=== PATIENT | female | born 1935 | race Caucasian/White ===

== ENCOUNTER 2016-09-16 10:11 | Day surgery (SDC) | payer MEDICARE ==
[~2016-09-16] VITALS: Ht 162.6 cm; Wt 54.0 kg
[~2016-09-16 10:11] MED LIST: ANAS1 PO; ATEN-100 PO; CALC500T21 PO; CHOL4POW4 PO; CHOL50006 PO; DORZ2SOL3 EACH EYE; DYAZ37.52 PO; LATA.005%O EACH EYE; LOPE2 PO; LOSA25TA31 PO; METH750T2 PO; PROBCAP4 PO; TYLE3 PO
[2016-09-16] MEDS ORDERED: NS 1000P @30 MLS/HR (KVO) IV SCH (11:00)
[2016-09-16 11:07] VITALS: PULSE 76; RESP 18; TEMP 98.2; O2SAT 98
[2016-09-16] MEDS ORDERED: CALC1TAB12 PO (11:27)
[2016-09-16] MEDS ORDERED: LATA0.002 EACH EYE (11:27)
[2016-09-16] MEDS ORDERED: CHOL4POW3 PO (11:27)
[2016-09-16] MEDS ORDERED: LACTCAP8 PO (11:27)
[2016-09-16] MEDS ORDERED: DORZ2SOL15 EACH EYE (11:27)
[2016-09-16] MEDS ORDERED: PONASOL NASAL (11:27)
[2016-09-16] MEDS ORDERED: NITR0.4S SL (11:27)
[2016-09-16] MEDS ORDERED: DEEP0.65 (11:27)
[2016-09-16] MEDS ORDERED: HYOMAX-SL SL (11:27)
[2016-09-16] MEDS ORDERED: ATEN25TA PO (11:27)
[2016-09-16] MEDS ORDERED: FLUO0.0124 EACH EAR (11:27)
[2016-09-16] MEDS ORDERED: ASPI81CH37 CHEW (11:27)
[2016-09-16] MEDS ORDERED: VITA2000 PO (11:27)
[2016-09-16] MEDS ORDERED: FLAXPOW PO (11:27)
[2016-09-16] MEDS ORDERED: ANAS1 PO (11:27)
[2016-09-16] MEDS ORDERED: ACET-822 PO (11:27)
[2016-09-16] MEDS ORDERED: LOSA25TA PO (11:27)
[2016-09-16] MEDS ORDERED: TRIA37.5 PO (11:27)
[2016-09-16] MEDS ORDERED: PRED20 PO (11:27)
[2016-09-16] MEDS ORDERED: RANI150T PO (11:27)
[2016-09-16] MEDS ORDERED: HEPARIN-NS/PF INJ 500 ML ONE (12:24)
[2016-09-16] MEDS ORDERED: MIDAZOLAM HCL 2 MG/2 ML VIAL ONE (12:25)
[2016-09-16] MEDS ORDERED: diphenhydrAMINE HCL 50 MG/ML VIAL ONE (12:33)
[2016-09-16] MEDS ORDERED: MISC INFORMATION XX ONE (13:00)
[2016-09-16] MEDS ORDERED: LIDOCAINE HCL 1% 50 ML VIAL INFIL PRN (13:00)
[2016-09-16] MEDS ORDERED: BACITRACIN OINT 0.9 GM PKT TOP ONE (13:00)
[2016-09-16] MEDS ORDERED: SODIUM CHLOR 0.9% 250 ML INJ 250 ML IV PRN (13:00)
[2016-09-16] MEDS ORDERED: ATROPINE SULFATE 1 MG/ML VIAL IV PRN (13:00)
[2016-09-16] MEDS ORDERED: ONDANSETRON HCL 4 MG/2 ML VIAL IV PRN (13:00)
[2016-09-16] MEDS ORDERED: LORazepam 2 MG/ML VIAL IV PRN (13:00)
--- NOTE | 2016-09-16 13:24 | CATHPROC ---
[email or web address] HIS Report Study Information Study Number Admission Scheduled Start Study Start [id number] Sep 16 2016 10:11AM 09/16/2016 Sep 16 2016 12:13PM Study Type Rosalia Service Left/Possible PCI Cardiac Catheterization Admit Source Facility Department Other [facility] - Personal Computer Network Analyst Physician and Clinical Staff Initial MD Wren, Karl Shoe Repair Supervisorcarlos Martin RN, Josie Orozco RN Recorder Sabino Castaneda RCIS(BS) Scrub Gerri Chanel RT(R) Procedures Performed Procedure Location (Site) Vessel Name Angiogram LV LV Ventricle Coronary Angiograms LCA Left Coronary Coronary Angiograms RCA Right Coronary L Heart Cath Equipment Time Youth Liaison Officer Description Size Mfg Part Number Used/Scraped TRANSDUCER, TRUWAVE [id number] 12:14 AHUMADA CISSE * Used W/STOCKCOCK *[id number] TRANSDUCER, TRUWAVE [id number] 12:39 AHUMADA CISSE * Used W/STOCKCOCK *[id number] *[id number] [id number] *[id number] [id number] *[id number] 12:14 InboundWriter INDUSTRIES PACK, CCL CUSTOM * Used *[id number] 12:39 InboundWriter PACER PEN, SKIN DUAL W/ RULER * Used *[id number] 12:14 Vingle MEDICAL SHEATH, FR6.5 PRELUDE 11CM FR 6.5 038ACT Used *[id number] 12:39 Cogo WIRE, 3MMJ .035 180CM 180CM Used *[id number] 12:14 NAMIC MANIFOLD, 4 PORT * Used *[id number] 12:41 NYCOMED OMNIPAQUE, 350 MG, 150ML 150ML [id number] Used [id number] 12:39 ModuleQ BLANKET,WARM AIR CCL * Used *[id number] History: Allergies Allergy Reaction Cipro DIARRHEA Demerol NAUSEA Iohexol (OMNIPAQUE) Meds Given - Hives/Rash Lactose GI SXS Nonsteroidal Anti-Inflammatory DYSPEPSIA Agts Brimonidine Mobic Reclast History: Risk Factors Family History of Hypertension Dyslipidemia Previous SC Previous Heart Failure Premature CAD Yes No No No No Prior Valve Prior PCI Prior CABG Surgery No No No Cerebrovascular Peripheral Artery Chronic Lung On Dialysis Diabetes Disease Disease Disease No No Yes No No History: Stress Tests Stress or Imaging Studies Performed Yes Standard Exercise Stress Test No Stress Echo No Stress Test SPECT Stress Test SPECT Result Stress Test SPECT Ischemia Risk/Extent Yes Positive High Stress Test CMR No Cardiac CTA Coronary Calcium Score No No History: Other Current Smoker No Labs Hgb (g/dl) Hct (%) WBC (l/cumm) Platelets (thousands) 11.60-17.00 35.00-51.00 4.00-11.00 150.00-450.00 13.0 37.8 8.6 241 Glucose (mg/dl) BUN (mg/dl) Creatinine (mg/dl) BUN:Creatinine (1:x) 74.00-106.00 7.00-18.00 0.50-1.30 10.00-20.00 139 8 0.6 13.3 Na (meq/l) K (meq/l) 136.00-145.00 3.50-5.10 137 3.6 INR (PTT:PT) 0.90-1.10 1.1 CPK-MB (ng/ML) 0.50-3.60 Not Drawn Medication Medication Total Dose (Bolus/Oral) Medication Total Dosage/Unit 1% XYLOCAINE 20 mL BENADRYL 25 mg VERSED 1 mg Medications (Bolus/Oral) Medication Time Given Dosage/Unit Administered By Reason BENADRYL 09/16/2016 12:33:00 PM 25 mg Joaquín Martin RN 25 mg BENADRYL given in lab by Joaquín Martin RN in Right Forearm via Peripheral IV. Ordered by Karl Dunn. VERSED 09/16/2016 12:35:00 PM 1 mg Joaquín Martin RN 1 mg VERSED given in lab by Joaquín Martin RN in Right Forearm via Peripheral IV. Ordered by Karl Wren. 1% XYLOCAINE 09/16/2016 12:35:04 PM 20 mL Karl Wren 20 mL 1% XYLOCAINE given in lab by Karl Wren in Right Groin via Subcutaneous. Ordered by Karl Mancera ms. Medication (Drip) Medication Time Given Dosage/Unit Concentration/Unit Diluent (ml) Solution IV Solutions 09/16/2016 12:24:53 PM 0 mL (IV) 500 NaCl .9 Patient arrived on IV Solutions in Right Forearm via Peripheral IV. Pump/Drip Flow = 20 ml/hr using N aCl .9. Ordered by Karl Wren. Initial Case Assessment Cardiovascular HR Rhythm NIBP Chest Pain 80 SR 137/69 0 Edema Present Skin color Skin None Normal Warm Dry Circulatory - Right Pulses Dorsalis Pedis Femoral 2 2 Scale (0,1,2,3,4,d) Circulatory - Left Pulses Dorsalis Pedis Femoral 2 2 Scale (0,1,2,3,4,d) Circulatory - Lower Extremities Color Lower Right Color Lower Left Normal Normal Neurological State Oriented to time-place- Alert Moves all extremities person Respiration - General Respiration Rate SpO2 (%) (B/min) 12 95 Chronological Log Time Study Chronological Log 12:20:35 Patient arrived via Bed. 12:20:42 Patient Name, D.O.B, / Armband Verified By R.N. 12:20:42 Consent signed by the physician and the patient and verified by the Personal Computer Network Analyst staff. 12:20:43 Pre-op and post- op instructions given; patient acknowledges understanding of instructions. Vitals capture started with the following parameters, Patient=Adult, Interval=5 min, Initial Pr nhuoft=066 mmHg, 12:22:35 Deflation Rate=5 mmHg 12:23:48 HR=78 bpm, DLVM=039/68 mmhg, MeV2=893.0 %, Resp=9 B/min, Pain=0, Joanna=10, Spann=2 12:24:16 Reference ECG taken 12:24:48 Patient has been NPO for Less than 6Hrs. 12:24:49 Skin Breakdown- 12:24:50 Patient Warmer Placed on the Table. 12:24:52 A # 20 IV was noted in the Forearm (right). Grade = 0 Patient arrived on IV Solutions in Right Forearm via Peripheral IV. Pump/Drip Flow = 20 ml/hr u sing NaCl .9. Ordered 12:24:53 by Karl Wren. 12:24:54 History and physical on the chart or being dictated. Assessment: Initial Case, HR=80 BPM, Rhythm=SR, NUZG=279/69 mmhg, Chest Pain=0, Edema=None, Col or=Normal, Skin = Warm, Dry Right Pulses: Som Ped=2, Femoral=2 Left Pulses: Som Ped=2, Femoral=2 12:24:55 Lower Right Extremities: Color=Normal Lower Left Extremities: Color=Normal Neurological: State=Alert, Ox3, JAMIL Respiration: Resp=12 B/min, SpO2=95 % 12:25:00 MD arrived. 12:28:08 HR=82 bpm, XIBE=414/69 mmhg, GhZ1=645.0 %, Resp=15 B/min, Pain=0, Joanna=10, Spann=2 Time Out. Correct patient, correct procedure,correct physician, ,power injector loaded or not l oaded with contrast with 12:32:53 surgical team present. Time Out Concurred by MD, individual staff and DUPLICATE MAKER in procedure 12:32:54 Case Start 12:33:00 25 mg BENADRYL given in lab by Joaquín Martin RN in Right Forearm via Peripheral IV. Ordered by Karl Wren. 12:33:10 HR=80 bpm, GJYW=189/73 mmhg, DiR9=849.0 %, Resp=15 B/min, Pain=0, Joanna=10, Spann=2 12:35:00 1 mg VERSED given in lab by Joaquín Martin RN in Right Forearm via Peripheral IV. Ordered by Karl Wren. 12:35:04 20 mL 1% XYLOCAINE given in lab by Karl Wren in Right Groin via Subcutaneous. Ordered by Karl Wren. 12:35:14 Access site was Right Femoral Artery. 12:36:18 Pressure channel 1 zeroed. 12:38:09 HR=84 bpm, KBTF=720/72 mmhg, SpO2=99.0 %, Resp=11 B/min, Pain=0, Joanna=10, Spann=2 12:39:05 A SHEATH, FR6.5 PRELUDE 11CM FR 6.5 was advanced into the Fem Art (right) using the Percuta neous technique. Recorded Pressure: Ao, HR=78, Condition=Condition 1 12:40:42 (Aorta) Ao 149/71/106 A JL 4.0 INFINITI CATHETER FR 6 was advanced over a wire. OMNIPAQUE, 350 MG, 150ML 150ML was us ed for 12:41:06 injections. 12:41:13 The LCA was injected and visualized at various angles. OMNIPAQUE, 350 MG, 150ML 150ML used . 12:43:14 HR=83 bpm, ELNS=582/58 mmhg, SpO2=97.0 %, Resp=9 B/min, Pain=0, Joanna=10, Spann=2 12:43:59 Catheter was removed A JR 4.0 INFINITI CATHETER FR 6 was advanced over a wire. OMNIPAQUE, 350 MG, 150ML 150ML was us ed for 12:44:00 injections. 12:44:44 The RCA was injected and visualized at various angles. OMNIPAQUE, 350 MG, 150ML 150ML used . 12:45:08 Catheter was removed A PIGTAIL STR INFINITI CATHETER FR 6 was advanced over a wire. OMNIPAQUE, 350 MG, 150ML 150ML w as used for 12:45:10 injections. Recorded Pressure: LV, HR=84, Condition=Condition 1 12:46:09 (Left Ventricle) LV 133/3/12 12:46:47 The LV was injected at 8 cc/sec for a total of 32. OMNIPAQUE, 350 MG, 150ML 150ML used. 12:48:09 HR=81 bpm, XVAP=106/64 mmhg, SpO2=96.0 %, Resp=13 B/min, Pain=0, Joanna=10, Spann=2 Recorded Pressure: LV, Ao, HR=85, Condition=Condition 1 12:48:22 (Left Ventricle) LV 139/4/44, (Aorta) Ao 138/54/94 12:49:05 Catheter was removed 12:50:00 Case End 12:53:10 HR=80 bpm, UTTI=798/57 mmhg, SpO2=99.0 %, Resp=10 B/min, Pain=0, Joanna=10, Spann=2 12:59:08 Sterile dressing applied to site 12:59:08 No case complications noted. 12:59:09 Cine recording checked. 12:59:12 Bedside Report will be given. 12:59:14 Contrast Scanned 12:59:17 A Left Heart Cath was performed. 12:59:[address] [facility] End Study - Contrast Media Used In Study Contrast Total Opened (mL) Total Used (mL) Total Wasted (mL) Omnipaque 70 70 0 End Study - Maximum Contrast Load Max Contrast Load (mL) 450.0 End Study - Radiation Exposure Fluoro Time (minutes) 1.3 End Study - Patient Disposition Complications Transferred To Telemetry Bed
--- NOTE | 2016-09-16 13:25 | MA ---
cc: CHUCHO DOYLE MD DATE 09/16/2016 PROCEDURE PERFORMED Cardiac catheterization PROCEDURAL STATEMENT The patient was prepped and draped in the usual fashion. She was premedicated with prednisone and Benadryl. A 6 sheath was inserted percutaneously in the right femoral artery. Coronary angiography was done with Brian preformed catheters. Left ventriculography was done with a pigtail catheter. RESULTS Aortic pressure of 140/54. Left ventricular end-diastolic pressure was 4. There was no gradient across the aortic valve. CORONARY ANGIOGRAPHY Left main coronary was normal. The left anterior descending artery was essentially normal throughout its course. At the origin of the first diagonal branch, a 20% stenosis was present. No other significant stenoses were seen. The left circumflex artery was essentially normal throughout its course. The right coronary artery was a large dominant artery. No significant stenoses were noted. The left ventricle was normal in size. Overall left ventricular ejection fraction was estimated at 60-65%. No mitral regurgitation was present. The aortic outflow tract appeared normal. CONCLUSIONS Essentially normal coronary arteries with normal left ventricular function and normal hemodynamics. MD MARIA C Gao/RA /1:05 PM /1:10 PM
[2016-09-16] MEDS ORDERED: IOHEXOL 350 MG/ML 100 ML BTL (for Cath Lab) OTHER ONE (15:22)
== END 2016-09-16 18:02 | disposition home or self-care (01) ==
LOC: HCAT 10:11 → HDIC 10:12 → HCAT 18:02
PROVIDERS: ATTEND Internal Medicine Cardiovascular Disease
DX: R07.89 Other chest pain (principal); I10 Essential (primary) hypertension; Z87.891 Personal history of nicotine dependence; I73.9 Peripheral vascular disease, unspecified; K21.9 Gastro-esophageal reflux disease without esophagitis; M50.30 Other cervical disc degeneration, unspecified cervical region; M41.9 Scoliosis, unspecified; Z85.3 Personal history of malignant neoplasm of breast
CPT/HCPCS: 93458; C1769; C1893; J1200; J1644; J2250; Q9967

== ENCOUNTER 2017-06-03 03:44 | Inpatient (IN) | payer MEDICARE ==
[2017-06-03] VITALS (7 sets, daily range): BP systolic 115–193; BP diastolic 58–78; PULSE 78–94; RESP 16–18; TEMP 97.5–98.5; O2SAT 95–100
[~2017-06-03] VITALS: Ht 162.6 cm; Wt 55.3 kg
[~2017-06-03 03:44] MED LIST changes: +ACET-822 PO; +ASPI81CH6 CHEW; -ATEN-100 PO; +ATEN25TA PO; +CALC1TAB12 PO; -CALC500T21 PO; +CHOL4POW3 PO; -CHOL4POW4 PO; -CHOL50006 PO; +DEEP0.65; +DORZ2SOL15 EACH EYE; -DORZ2SOL3 EACH EYE; -DYAZ37.52 PO; +FLAXPOW PO; +FLUO0.0124 EACH EAR; +HYOMAX-SL SL; +LACTCAP8 PO; -LATA.005%O EACH EYE; +LATA0.002 EACH EYE; -LOPE2 PO; +LOSA25TA PO; -LOSA25TA31 PO; -METH750T2 PO; +NITR0.4S SL; +PONASOL NASAL; +PRED20 PO; -PROBCAP4 PO; +RANI150T PO; +TRIA37.5 PO; -TYLE3 PO; +VITA2000 PO
--- NOTE | 2017-06-03 04:16 | PD ---
HPI Chief Complaint: Abdominal Pain Time Seen by Provider: 03:57 Travel History International Travel<30 days: No Contact w/Intl Traveler<30days: No Traveled to known affect area: No History of Present Illness HPI Pt is 81 yr old female with PMH of breast cancer followed by Dr burns coming in with severe abdo pain after eating peanuts tonight, she has history of gastritis and thinks peanuts often set off pain On arrival to ER pt was doubling over holding abdo, then when to bathroom and had somereliefr of her pain, Pt has had diverticulitis surgeries and and also jejunum resection 2005 \ PT MED HISTORY INCLUDES GERD (gastroesophageal reflux disease) Glaucoma Hypertension Inflammatory bowel disease (h/o diverticulitis and colitis) with [id number] 2005 Migraine headaches (Hx of migraines.) No Previous Radiation Therapy Pneumonia (Hx as a child.) Preferred Language for Healthcare Information (telugu) Recurrent UTI (Methanamine Hippurate) Uterine fibroids L breast cancer (Mammo for palp abn 12/19/12- L UOQ 1.8cm mass, 1.1cm by US hypoechoic mass. On Chemo PO now L breast Bx 12/27/12- poorly diff IDC, SBR 8/9, ER97%, ME 98%, Her2 3+.positive. MRI 01/09/13. T=2.2cm LUOQmass, 6mm mass 6:00. MRI bx 01/19/13. Mod ductal hyperplasia, cyst, benign lobules. L mastectomy 03/14/13. T=3.5x2.5x2.0cm, SBR 8/9, poorly diff IDC, PFSH Past Medical History Cancer: Yes (LEFT BREAST) Cardiovascular Problems: Yes (HTN) Chest Pain: No Diabetes: No (BOARDERLINE) Diminished Hearing: No Endocrine: No Gastrointestinal Disorders: Yes (REFLUX, DIVERTICULITIS HX, GERD) GERD: Yes Glaucoma: Yes (BILATERAL ) Genitourinary: No Hepatitis: No Hiatal Hernia: Yes Hypertension: Yes Immune Disorder: No Medical other: Yes (LYMPHEDEMA LEFT ARM) Musculoskeletal: Yes (ARTHRITIS) Neurologic: No Psychiatric: No Reproductive: No Respiratory: No Integumentary: No Immunizations Current: Yes Thyroid Disease: No Tetanus Vaccination: Unknown Influenza Vaccination: Yes ?: Not Past Surgical History Abdominal Surgery: Yes (COLON RESECTION X 2, LAP. NO, APPY, LYSIS ADHESIONS) AICD: No Appendectomy: Yes Cardiac Surgery: No Section: Yes (X 3) Cholecystectomy: Yes Ear Surgery: No Endocrine Surgery: No Eye Surgery: Yes (LEFT CATARACT) Genitourinary Surgery: No Gynecologic Surgery: Yes (C SECTION X 3, HYSTERECTOMY, OPHOORECTOMY) Hysterectomy: Yes Joint Replacement: No Oral Surgery: Yes (TONSILLECTOMY) Pacemaker: No Thoracic Surgery: No Tonsillectomy: Yes Other Surgery: Yes (2 COLON SURGERIES PORT REMOVAL) Social History Alcohol Use: No Tobacco Use: No Substance Use: No Allergies-Medications (Allergen,Severity, Reaction): Coded Allergies: brimonidine (Unverified Allergy, Severe, 10/19/16) lactose (Unverified Allergy, Severe, GI SXS, 10/19/16) meloxicam (Unverified Allergy, Severe, 10/19/16) zoledronic acid (Unverified Allergy, Severe, 10/19/16) iohexol (Unverified Allergy, Unknown, Meds Given - Hives/Rash, 10/19/16) ciprofloxacin (Unverified Adverse Reaction, Severe, DIARRHEA, 10/19/16) meperidine (Unverified Adverse Reaction, Severe, NAUSEA, 10/19/16) diclofenac (Unverified Adverse Reaction, Mild, DYSPEPSIA, 10/19/16) etodolac (Unverified Adverse Reaction, Mild, DYSPEPSIA, 10/19/16) flurbiprofen (Unverified Adverse Reaction, Mild, DYSPEPSIA, 10/19/16) ibuprofen (Unverified Adverse Reaction, Mild, DYSPEPSIA, 10/19/16) indomethacin (Unverified Adverse Reaction, Mild, DYSPEPSIA, 10/19/16) ketoprofen (Unverified Adverse Reaction, Mild, DYSPEPSIA, 10/19/16) ketorolac (Unverified Adverse Reaction, Mild, DYSPEPSIA, 10/19/16) naproxen (Unverified Adverse Reaction, Mild, DYSPEPSIA, 10/19/16) oxaprozin (Unverified Adverse Reaction, Mild, DYSPEPSIA, 10/19/16) Reported Meds & Prescriptions Reported Meds & Active Scripts Active Reported Methenamine Hippurate 1 Gram Tab 1 Gm PO BID Cranberry Urinary Comfort (Vitamins C & E) 1 Cap 1 Cap PO DAILY Latanoprost Opth Drops (Latanoprost) 0.005% Drops 1 Drop EACH EYE HS Refrigerate until opened. Dorzolamide-Timolol Opth Drops 22.3-6.8 Mg/Ml Soln 1 Drop EACH EYE BID Triamterene-Hydrochlorothiazide 37.5-25 Mg Tab 1 Tab PO DAILY Losartan (Losartan Potassium) 25 Mg Tab 25 Mg PO DAILY Atenolol 25 Mg Tab 25 Mg PO DAILY Flax Seeds (Flaxseed (Linseed)) 1 Pow Pow 1 Mg PO DIRECTED Cholestyramine 4 Gm/Dose Powd 4 Gm PO HS 1 level scoopful of powder contains 4 grams of cholestyramine. Nitrostat SL (Nitroglycerin) 0.4 Mg Subl 0.4 Mg SL DIRECTED PRN 1 tablet under the tongue as needed for chest pain. Repeat every 5 minutes for a total of 3 DOSES or call 911 if NO relief. Dermotic Otic Drops (Fluocinolone Otic Drops) 0.01% Drops 1 Drop EACH EAR DAILY Ranitidine (Ranitidine HCl) 150 Mg Tab 150 Mg PO DAILY Probiotic (Lactobacillus Acidophilus) 1 Cap Cap 1 Cap PO TIDAC Vitamin D3 (Cholecalciferol) 2,000 Unit Cap 2,000 Units PO DAILY Tylenol Extra Strength (Acetaminophen) 500 Mg Tablet 500 Mg PO Q6HR Calcium 500 +D (Calcium Carbonate-Cholecalciferol) 500-400 Mg-Unit Tab 1 Tab PO BID Arimidex (Anastrozole) 1 Mg Tab 1 Mg PO DAILY Review of Systems Except as stated in HPI: all other systems reviewed are Neg Gastrointestinal: Positive: Abdominal Pain Physical Exam Narrative GENERAL: non toxic appearance in mild distress SKIN: Warm and dry. HEAD: Atraumatic. Normocephalic. EYES: Pupils equal and round. No scleral icterus. No injection or drainage. ENT: No nasal bleeding or discharge. Mucous membranes pink and moist. NECK: Trachea midline. No JVD. CARDIOVASCULAR: Regular rate and rhythm. RESPIRATORY: No accessory muscle use. Clear to auscultation. Breath sounds equal bilaterally. GASTROINTESTINAL: Abdomen deanna-mbilical tenderness with out obvious protrusion or mass felt +tender, nondistended. Hepatic and splenic margins not palpable. MUSCULOSKELETAL: Extremities without clubbing, cyanosis, or edema. No obvious deformities. NEUROLOGICAL: Awake and alert. No obvious cranial nerve deficits. Motor grossly within normal limits. Five out of 5 muscle strength in the arms and legs. Normal speech. PSYCHIATRIC: Appropriate mood and affect; insight and judgment normal. Data Data Last Documented VS Orders Orders Complete Blood Count With Diff (06/03/17 04:02) Comprehensive Metabolic Panel (06/03/17 04:02) Ckmb (Isoenzyme) Profile (06/03/17 04:02) Troponin I (06/03/17 04:02) Ua Includes Microscopic (06/03/17 04:02) Chest, Pa & Lat (06/03/17 04:02) Abdomen, Flat & Upright (06/03/17 04:02) Type And Screen (06/03/17 04:02) Lipase (06/03/17 04:02) Pantoprazole Inj (Protonix Inj) (06/03/17 04:30) Famotidine Inj (Pepcid Inj) (06/03/17 04:17) Morphine Inj (Morphine Inj) (06/03/17 05:15) Ct Abd/Pel W/O Iv Contrast (06/03/17 ) Ondansetron Inj (Zofran Inj) (06/03/17 05:15) Consult General Surgery (06/03/17 ) NPO (06/03/17 06:06) Dext 5%-Nacl 0.9% 1000 Ml Inj (D5w-Ns 10 (06/03/17 06:15) Activity Oob Ad Amvis (06/03/17 06:09) Morphine Inj (Morphine Inj) (06/03/17 06:15) Admit Order (Ed Use Only) (06/03/17 06:11) Vital Signs (Adult) GURJIT.Q4H (06/03/17 06:11) Labs Laboratory Tests Test 06/03/17 04:05 White Blood Count 21.1 TH/MM3 Red Blood Count 4.68 MIL/MM3 Hemoglobin 13.9 GM/DL Hematocrit 40.7 % Mean Corpuscular Volume 86.9 FL Mean Corpuscular Hemoglobin 29.8 PG Mean Corpuscular Hemoglobin Concent 34.3 % Red Cell Distribution Width 13.4 % Platelet Count 260 TH/MM3 Mean Platelet Volume 7.7 FL Neutrophils (%) (Auto) 85.2 % Lymphocytes (%) (Auto) 6.8 % Monocytes (%) (Auto) 7.0 % Eosinophils (%) (Auto) 0.7 % Basophils (%) (Auto) 0.3 % Neutrophils # (Auto) 18.0 TH/MM3 Lymphocytes # (Auto) 1.4 TH/MM3 Monocytes # (Auto) 1.5 TH/MM3 Eosinophils # (Auto) 0.1 TH/MM3 Basophils # (Auto) 0.1 TH/MM3 CBC Comment DIFF FINAL Differential Comment Urine Color YELLOW Urine Turbidity CLEAR Urine pH 5.5 Urine Specific [place] 1.021 Urine Protein TRACE mg/dL Urine Glucose (UA) NEG mg/dL Urine Ketones NEG mg/dL Urine Occult Blood MOD Urine Nitrite NEG Urine Bilirubin NEG Urine Urobilinogen LESS THAN 2.0 MG/DL Urine Leukocyte Esterase NEG Urine RBC 6 /hpf Urine WBC LESS THAN 1 /hpf Urine Squamous Epithelial Cells <1 /hpf Urine Hyaline Casts 1 /lpf Urine Mucus FEW /lpf Blood Urea Nitrogen 20 MG/DL Creatinine 0.92 MG/DL Random Glucose 157 MG/DL Total Protein 7.9 GM/DL Albumin 4.0 GM/DL Calcium Level 9.5 MG/DL Alkaline Phosphatase 48 U/L Aspartate Amino Transf (AST/SGOT) 18 U/L Alanine Aminotransferase (ALT/SGPT) 22 U/L Total Bilirubin 0.6 MG/DL Sodium Level 138 MEQ/L Potassium Level 3.4 MEQ/L Chloride Level 100 MEQ/L Carbon Dioxide Level 29.1 MEQ/L Anion Gap 9 MEQ/L Estimat Glomerular Filtration Rate 59 ML/MIN Total Creatine Kinase 95 U/L Troponin I LESS THAN 0.02 NG/ML Lipase 113 U/L [facility] Medical Decision Making Medical Screen Exam Complete: Yes Emergency Medical Condition: Yes Differential Diagnosis DDx gastritis vs GB disease vs pancreatitis vs GERD vs ileus vs SBO other Narrative Course CT shows SBO with dilated loops of Small bowel and then decompressed Small bowel distal to assumed transition point although no obvious transition point identified. pt case discussed with general surgery Made NPO and IV fluids and admit to medicaine conservative treat initial with surgical consult as per surgery retinal surgeon Diagnosis Primary Impression: SBO (small bowel obstruction) Additional Impression: Hypokalemia Scripts Pantoprazole (Protonix) 40 Mg Tab 40 MG PO DAILY for Reflux, #30 TAB 0 Refills Prov: Jenae Hernandez 06/06/17 Herbie James MD Jun 03, 2017 04:16
[2017-06-03] MEDS ORDERED: FAMOTIDINE 20 MG/2 ML VIAL IV STA (04:17)
[2017-06-03] MEDS ORDERED: CRANCAP2 PO (04:18)
[2017-06-03] MEDS ORDERED: METH1TAB2 PO (04:18)
[2017-06-03 04:26] LABS: BASOPHIL # 0.1 TH/MM3 (0-0.2); BASOPHIL % 0.3 % (0.0-2.0); EOSINOPHIL # 0.1 TH/MM3 (0-0.4); EOSINOPHIL % 0.7 % (0.0-4.0); HEMATOCRIT 40.7 % (35.0-46.0); HEMOGLOBIN 13.9 GM/DL (11.6-15.3); LYMPH % 6.8 % (9.0-44.0); LYMPHOCYTE # 1.4 TH/MM3 (1.0-4.8); MEAN CELL VOLUME 86.9 FL (80.0-100.0); MEAN CORPUSCULAR HEMOGLOBIN 29.8 PG (27.0-34.0); MEAN CORPUSCULAR HGB CONC 34.3 % (32.0-36.0); MEAN PLATELET VOLUME 7.7 FL (7.0-11.0); MONOCYTE # 1.5 TH/MM3 (0-0.9); NEUT % 85.2 % (16.0-70.0); PLATELET COUNT 260 TH/MM3 (150-450); RED BLOOD COUNT 4.68 MIL/MM3 (4.00-5.30); RED CELL DISTRIBUTION WIDTH 13.4 % (11.6-17.2); WHITE BLOOD COUNT 21.1 TH/MM3 (4.0-11.0)
[2017-06-03 04:29] LABS: BILIRUBIN, URINE NEG (NEG); BLOOD, URINE MOD (NEG); GLUCOSE,URINE NEG (NEG); HYALINE CAST, URINE 1 /lpf (RARE); KETONE, URINE NEG (NEG); MUCUS URINE FEW /lpf (OCC); NITRITE,URINE NEG (NEG); PH, URINE 5.5 (5.0-8.5); SQUAMOUS EPITHELIAL CELL URINE <1 /hpf (0-5); URINE COLOR YELLOW (YELLW/STRAW); URINE LEUKOCYTE ESTERASE NEG (NEG)
[2017-06-03] MEDS ORDERED: PANTOPRAZOLE SODIUM 40 MG VIAL IV PUSH ONE (04:30)
[2017-06-03 04:38] LABS: ALT (GPT) 22 U/L (10-53); AST (GOT) 18 U/L (15-37); BICARBONATE 29.1 MEQ/L (21.0-32.0); BLOOD UREA NITROGEN 20 MG/DL (7-18); CALCIUM 9.5 MG/DL (8.5-10.1); CHLORIDE 100 MEQ/L (98-107); CREATININE 0.92 MG/DL (0.50-1.00); GLOMERULAR FILTRATION RATE 59 ML/MIN (>89); GLUCOSE,RANDOM 157 MG/DL (74-106); SODIUM (NA) 138 MEQ/L (136-145)
[2017-06-03 04:42] LABS: ALKALINE PHOSPHATASE 48 U/L (45-117); TOTAL BILIRUBIN ADULT 0.6 MG/DL (0.2-1.0); TOTAL PROTEIN 7.9 GM/DL (6.4-8.2); TROPONIN I LESS THAN 0.02 NG/ML (0.02-0.05)
--- NOTE | 2017-06-03 05:04 | RADRPT ---
EXAM DATE/TIME: 06/03/2017 04:22 [facility] COMPARISON: CHEST SINGLE AP, July 07, 2014, 17:31. INDICATIONS : Patient complains lower chest/upper abdomen pain and cramping. MEDICAL HISTORY : Carcinoma, breast. SURGICAL HISTORY : Mastectomy, left. ENCOUNTER: Initial ACUITY: 3 days PAIN SCORE: 4/10 LOCATION: chest FINDINGS: No infiltrate, effusion or pneumothorax demonstrated. Heart size stable, within normal limits. Mastec christophe changes on the left are again noted. CONCLUSION: No acute abnormality demonstrated. Joe Sanders MD on June 03, 2017 at 5:01 Board Certified Radiologist. This report was verified electronically.
--- NOTE | 2017-06-03 05:05 | RADRPT ---
EXAM DATE/TIME: 06/03/2017 04:24 [facility] COMPARISON: No previous studies available for comparison. INDICATIONS : Patient complains of abdominal pain and cramping. Nausea and vomiting as well. MEDICAL HISTORY : None. SURGICAL HISTORY : Appendectomy. Cholecystectomy. ENCOUNTER: Initial ACUITY: 3 days PAIN SCORE: 8/10 LOCATION: Left Lower Quadrant. FINDINGS: Supine and upright views of the abdomen were performed. The abdominal bowel gas pattern is normal. No air fluid levels are seen. No abnormal masses, calcifications, or organomegaly is seen. The visu alized lower lungs are clear. No evidence of free intraperitoneal gas. The osseous structures are u nremarkable. Right upper quadrant cholecystectomy clips and an anastomotic staple line in the pelvic cavity are no renetta. CONCLUSION: Benign-appearing abdomen. Previous cholecystectomy and bowel surgery. Joe Sanders MD on June 03, 2017 at 5:03 Board Certified Radiologist. This report was verified electronically.
[2017-06-03] MEDS ORDERED: ONDANSETRON HCL 4 MG/2 ML VIAL IV PUSH ONE (05:15)
[2017-06-03] MEDS ORDERED: MORPHINE SULFATE 4 MG/ML INJ IV PUSH ONE (05:15)
--- NOTE | 2017-06-03 05:54 | RADRPT ---
EXAM DATE/TIME: 06/03/2017 05:32 [facility] COMPARISON: No previous studies available for comparison. INDICATIONS : Diffuse abdominal pain. ORAL CONTRAST: No oral contrast ingested. RADIATION DOSE: 6.64 CTDIvol (mGy) MEDICAL HISTORY : Hypertension. Diverticulitis. Hernia, hiatal.Carcinoma, breast. Gastritis. GERD. SURGICAL HISTORY : Colon resection. Cholecystectomy.Appendectomy.Hysterectomy. Left mastectomy. ENCOUNTER: Initial ACUITY: 1 day PAIN SCALE: 9/10 LOCATION: Abdomen. TECHNIQUE: Volumetric scanning of the abdomen and pelvis was performed. Using automated exposure control and ad justment of the mA and/or kV according to patient size, radiation dose was kept as low as reasonably achievable to obtain optimal diagnostic quality images. DICOM format image data is available electro nically for review and comparison. FINDINGS: Small bowel is distended to the level of the mid ileum. Distal portions of the ileum are decompressed . I believe the transition is in the mid anterior pelvic cavity. Patient has had previous midline lap arotomy and surgery of the right side of the colon with an ileocolic anastomosis. The anastomosis ozzy ears patent. No mass demonstrated. Noncontrast appearance of the solid organs within normal limits. No free or loculated fluid. No lymph adenopathy. Visualized lung bases are clear. No acute bony abnormality demonstrated. CONCLUSION: 1. Small bowel obstruction that appears to be intermediate grade and occurring within the anterior as pect of the pelvic cavity at the level of the proximal ileum. No perceptible mass. Patient has had pr evious midline laparotomy and obstruction is presumably related to an adhesion. 2. Previous ileocolic surgery with anastomosis, not appearing to be acutely contributory. Joe Sanders MD on June 03, 2017 at 5:47 Board Certified Radiologist. This report was verified electronically.
[2017-06-03] MEDS ORDERED: MORPHINE SULFATE 4 MG/ML INJ IV PUSH PRN (06:15)
[2017-06-03] MEDS: DEXT 5%-NACL 0.9% 1000 ML INJ 1,000 ML IV SCH ×2 (06:20→14:27)
--- NOTE | 2017-06-03 08:53 | HHI.HP ---
HPI Service [facility] Hospitalists Primary Care Physician Mary Norris MD Admission Diagnosis SBO Chief Complaint: Abd pain Travel History International Travel<30 Days: No Contact w/Intl Traveler <30 Da: No Traveled to Known Affected Are: No History of Present Illness This is an 81-year-old female patient with past medical history which includes breast cancer followed by Dr. Wray, arthritis, GERD, glaucoma, hypertension, inflammatory bowel disease with history of diverticulitis and colitis, migraine headaches, recurrent UTIs. Patient has also had partial colectomy in the past and laparoscopic cholecystectomy as well as complete hysterectomy. Patient presented to the emergency department last night with severe abdominal pain after eating peanuts. Patient has history of gastritis and thinks peanuts often trigger her pain. Per ER notes, "On arrival to ER pt was doubling over holding abd, then when to bathroom and had some relief of her pain." Patient at this time patient reports abd pain a little better after having NGT placed. Patient denies flatus. Review of Systems Gastrointestinal: COMPLAINS OF: Abdominal pain, Constipation, Nausea, DENIES: Vomiting Past Family Social History Past Medical History Arthritis GERD Glaucoma Hypertension Inflammatory bowel disease diverticulitis and colitis Migraine headaches Recurrent UTI Uterine fibroids Breast cancer Past Surgical History Appendectomy C section Laparoscopic cholecystectomy Partial colectomy Breast biopsy Radical mastectomy left breast Cataracts Colon EGD - 11/12/2014 gastritis Hysterectomy Tonsillectomy Reported Medications Methenamine Hippurate 1 Gram Tab 1 Gm PO BID Cranberry Urinary Comfort (Vitamins C & E) 1 Cap 1 Cap PO DAILY Latanoprost Opth Drops (Latanoprost) 0.005% Drops 1 Drop EACH EYE HS Refrigerate until opened. Dorzolamide-Timolol Opth Drops 22.3-6.8 Mg/Ml Soln 1 Drop EACH EYE BID Triamterene-Hydrochlorothiazide 37.5-25 Mg Tab 1 Tab PO DAILY Losartan (Losartan Potassium) 25 Mg Tab 25 Mg PO DAILY Atenolol 25 Mg Tab 25 Mg PO DAILY Flax Seeds (Flaxseed (Linseed)) 1 Pow Pow 1 Mg PO DIRECTED Cholestyramine 4 Gm/Dose Powd 4 Gm PO HS 1 level scoopful of powder contains 4 grams of cholestyramine. Nitrostat SL (Nitroglycerin) 0.4 Mg Subl 0.4 Mg SL DIRECTED PRN 1 tablet under the tongue as needed for chest pain. Repeat every 5 minutes for a total of 3 DOSES or call 911 if NO relief. Dermotic Otic Drops (Fluocinolone Otic Drops) 0.01% Drops 1 Drop EACH EAR DAILY Ranitidine (Ranitidine HCl) 150 Mg Tab 150 Mg PO DAILY Probiotic (Lactobacillus Acidophilus) 1 Cap Cap 1 Cap PO TIDAC Vitamin D3 (Cholecalciferol) 2,000 Unit Cap 2,000 Units PO DAILY Tylenol Extra Strength (Acetaminophen) 500 Mg Tablet 500 Mg PO Q6HR Calcium 500 +D (Calcium Carbonate-Cholecalciferol) 500-400 Mg-Unit Tab 1 Tab PO BID Arimidex (Anastrozole) 1 Mg Tab 1 Mg PO DAILY Allergies: Coded Allergies: brimonidine (Unverified Allergy, Severe, 10/19/16) lactose (Unverified Allergy, Severe, GI SXS, 10/19/16) meloxicam (Unverified Allergy, Severe, 10/19/16) zoledronic acid (Unverified Allergy, Severe, 10/19/16) iohexol (Unverified Allergy, Unknown, Meds Given - Hives/Rash, 10/19/16) ciprofloxacin (Unverified Adverse Reaction, Severe, DIARRHEA, 10/19/16) meperidine (Unverified Adverse Reaction, Severe, NAUSEA, 10/19/16) diclofenac (Unverified Adverse Reaction, Mild, DYSPEPSIA, 10/19/16) etodolac (Unverified Adverse Reaction, Mild, DYSPEPSIA, 10/19/16) flurbiprofen (Unverified Adverse Reaction, Mild, DYSPEPSIA, 10/19/16) ibuprofen (Unverified Adverse Reaction, Mild, DYSPEPSIA, 10/19/16) indomethacin (Unverified Adverse Reaction, Mild, DYSPEPSIA, 10/19/16) ketoprofen (Unverified Adverse Reaction, Mild, DYSPEPSIA, 10/19/16) ketorolac (Unverified Adverse Reaction, Mild, DYSPEPSIA, 10/19/16) naproxen (Unverified Adverse Reaction, Mild, DYSPEPSIA, 10/19/16) oxaprozin (Unverified Adverse Reaction, Mild, DYSPEPSIA, 10/19/16) Family History Reviewed and noncontributory Social History Retired, Former smoker Denies illicit drug use Physical Exam Vital Signs Vital Signs Date Time Temp Pulse Resp B/P (MAP) Pulse Ox O2 Delivery O2 Flow Rate FiO2 06/03/17 07:34 85 17 122/59 (80) 100 Room Air 06/03/17 05:27 90 16 144/66 (92) 98 Room Air 06/03/17 04:32 84 18 183/74 (110) 98 Room Air 06/03/17 03:47 98.1 84 16 193/78 (116) 99 Physical Exam GENERAL: This is a well-nourished, well-developed patient, in no apparent distress. SKIN: Multiple healed scars through out abdomen HEAD: Atraumatic. Normocephalic. No temporal or scalp tenderness. EYES: Extraocular motions intact. No scleral icterus. No injection or drainage. CARDIOVASCULAR: Regular rate and rhythm RESPIRATORY: Clear to auscultation. Breath sounds equal bilaterally. GASTROINTESTINAL: Abdomen soft, diffusely tender, mild distention. hypoactive bowel sounds. NGT in place MUSCULOSKELETAL: Extremities without clubbing, cyanosis, or edema. No joint tenderness, effusion, or edema noted. No calf tenderness. Negative Homans sign bilaterally. NEUROLOGICAL: Awake and alert. No focal deficits noted. Motor and sensory grossly within normal limits. Five out of 5 muscle strength in all muscle groups. Normal speech. Laboratory Laboratory Tests Test 06/03/17 04:05 White Blood Count 21.1 Red Blood Count 4.68 Hemoglobin 13.9 Hematocrit 40.7 Mean Corpuscular Volume 86.9 Mean Corpuscular Hemoglobin 29.8 Mean Corpuscular Hemoglobin Concent 34.3 Red Cell Distribution Width 13.4 Platelet Count 260 Mean Platelet Volume 7.7 Neutrophils (%) (Auto) 85.2 Lymphocytes (%) (Auto) 6.8 Monocytes (%) (Auto) 7.0 Eosinophils (%) (Auto) 0.7 Basophils (%) (Auto) 0.3 Neutrophils # (Auto) 18.0 Lymphocytes # (Auto) 1.4 Monocytes # (Auto) 1.5 Eosinophils # (Auto) 0.1 Basophils # (Auto) 0.1 CBC Comment DIFF FINAL Differential Comment Urine Color YELLOW Urine Turbidity CLEAR Urine pH 5.5 Urine Specific [place] 1.021 Urine Protein TRACE Urine Glucose (UA) NEG Urine Ketones NEG Urine Occult Blood MOD Urine Nitrite NEG Urine Bilirubin NEG Urine Urobilinogen LESS THAN 2.0 Urine Leukocyte Esterase NEG Urine RBC 6 Urine WBC LESS THAN 1 Urine Squamous Epithelial Cells <1 Urine Hyaline Casts 1 Urine Mucus FEW Blood Urea Nitrogen 20 Creatinine 0.92 Random Glucose 157 Total Protein 7.9 Albumin 4.0 Calcium Level 9.5 Alkaline Phosphatase 48 Aspartate Amino Transf (AST/SGOT) 18 Alanine Aminotransferase (ALT/SGPT) 22 Total Bilirubin 0.6 Sodium Level 138 Potassium Level 3.4 Chloride Level 100 Carbon Dioxide Level 29.1 Anion Gap 9 Estimat Glomerular Filtration Rate 59 Total Creatine Kinase 95 Troponin I LESS THAN 0.02 Lipase 113 Result Diagram: 06/03/1740406/03/17404 Imaging Last Impressions Chest X-Ray 06/03/17401 Signed Impressions: Service Date/Time: Saturday, June 03, 2017 04:22 - CONCLUSION: No acute abnormality demonstrated. Joe Sanders MD Abdomen X-Ray 06/03/17401 Signed Impressions: Service Date/Time: Saturday, June 03, 2017 04:24 - CONCLUSION: Benign- appearing abdomen. Previous cholecystectomy and bowel surgery. Joe Sanders MD Abdomen/Pelvis CT 06/03/17 0000 Signed Impressions: Service Date/Time: Saturday, June 03, 2017 05:32 - CONCLUSION: 1. Small bowel obstruction that appears to be intermediate grade and occurring within the anterior aspect of the pelvic cavity at the level of the proximal ileum. No perceptible mass. Patient has had previous midline laparotomy and obstruction is presumably related to an adhesion. 2. Previous ileocolic surgery with anastomosis, not appearing to be acutely contributory. Joe Sanders MD Capopali VTE Risk Assessment Caprini VTE Risk Assessment: Mod/High Risk (score >= 2) Caprini Risk Assessment Model Point Value = 1 Point Value = 2 Point Value = 3 Point Value = 5 Age 41-60 Minor surgery BMI > 25 kg/m2 Swollen legs Varicose veins or History of unexplained or recurrent spontaneous Oral contraceptives or hormone replacement Sepsis (< 1 month) Serious lung disease, including pneumonia (< 1 month) Abnormal pulmonary function Acute myocardial infarction Congestive heart failure (< 1 month) History of inflammatory bowel disease Medical patient at bed rest Age 61-74 Arthroscopic surgery Major open surgery (> 45 min) Laparoscopic surgery (> 45 min) Malignancy Confined to bed (> 72 hours) Immobilizing plaster cast Central venous access Age >= 75 History of VTE Family history of VTE Factor V Leiden Prothrombin [id number] Lupus anticoagulant Anticardiolipin antibodies Elevated serum homocysteine Heparin-induced thrombocytopenia Other congenital or acquired thrombophilia Stroke (< 1 month) Elective arthroplasty Hip, pelvis, or leg fracture Acute spinal cord injury (< 1 month) Prophylaxis Regimen Total Risk Factor Score Risk Level Prophylaxis Regimen 0-1 Low Early ambulation 2 Moderate Order ONE of the following: *Sequential Compression Device (SCD) *Heparin 5000 units SQ BID 3-4 Higher Order ONE of the following medications: *Heparin 5000 units SQ TID *Enoxaparin/Lovenox 40 mg SQ daily (WT < 150 kg, CrCl > 30 mL/min) *Enoxaparin/Lovenox 30 mg SQ daily (WT < 150 kg, CrCl > 10-29 mL/min) *Enoxaparin/Lovenox 30 mg SQ BID (WT < 150 kg, CrCl > 30 mL/min) AND/OR *Sequential Compression Device (SCD) 5 or more Highest Order ONE of the following medications: *Heparin 5000 units SQ TID (Preferred with Epidurals) *Enoxaparin/Lovenox 40 mg SQ daily (WT < 150 kg, CrCl > 30 mL/min) *Enoxaparin/Lovenox 30 mg SQ daily (WT < 150 kg, CrCl > 10-29 mL/min) *Enoxaparin/Lovenox 30 mg SQ BID (WT < 150 kg, CrCl > 30 mL/min) AND *Sequential Compression Device (SCD) Assessment and Plan Problem List: (1) SBO (small bowel obstruction) ICD Codes: K56.609 - Unspecified intestinal obstruction, unspecified as to partial versus complete obstruction Plan: CT of the abdomen and pelvis reviewed and reveals small bowel obstruction that appears to be intermittent grade and occurring within the anterior aspect of the pelvic cavity at the level of the proximal ileum. No perceptible mass. Patient has had previous midline laparoscopic and short action is presumably related to an adhesion. Previous ileocecal surgery with anastomosis, not appearing to be acutely contributing - Patient nothing by mouth - NGT to LIWS - Consult general surgery - Repeat CT with contrast requested and pending - Lactic acid pending - IV fluid for hydration - Supportive care - patient may require surgical intervention with lysis of adhesions (2) Hypokalemia ICD Codes: E87.6 - Hypokalemia Plan: Replaced recheck in a.m. (3) Leukocytosis ICD Codes: D72.829 - Elevated white blood cell count, unspecified Status: Resolved Plan: White blood cell count 21.1 - patient with diffusely tender abd - consult general surgery, who are also following - Repeat CT with contrast requested and pending - Lactic acid pending Assessment and Plan Patient examined. Assessment and plan formulated with Jenae Hernandez PA-C. I agree with the above. Physician Certification 2 Midnight Certification Type: Admission for Inpatient Services Order for Inpatient Services The services are ordered in accordance with Medicare regulations or non- Medicare payer requirements, as applicable. In the case of services not specified as inpatient-only, they are appropriately provided as inpatient services in accordance with the 2-midnight benchmark. Estimated LOS (days): 3 days is the estimated time the patient will need to remain in the hospital, assuming treatment plan goals are met and no additional complications. Post-Hospital Plan: Not yet determined Jenae Hernandez Jun 03, 2017 08:53 Angel Kimball DO Jun 05, 2017 13:55
[2017-06-03] MEDS ORDERED: POTASSIUM CHLOR 20 MEQ PREMIX 100 ML IV ONE (09:00)
--- NOTE | 2017-06-03 10:37 | PD.CONS ---
HPI Service General surgery Consult Requested By Reason for Consult Small bowel obstruction Primary Care Physician Mary Norris MD History of Present Illness The patient is an 81-year-old female who presents with severe upper abdominal pain which began last night around dinnertime and worsened throughout the night. She relates that she had some peanuts at lunch to eat. In the middle of the night she developed nausea and vomiting. Denies flatus. The pain has been relieved somewhat with morphine. She was evaluated in the emergency department and noted to have leukocytosis of 21,[address] scan of the abdomen and pelvis without oral or IV contrast which showed a small bowel obstruction. She is allergic to IV contrast. The patient has multiple medical problems. She is undergone left mastectomy for breast cancer and is currently on Arimidex. Past surgical history is extensive including right colectomy for colon polyp, sigmoid colectomy for diverticulitis, laparoscopic cholecystectomy , 3, appendectomy, hysterectomy, some surgery for lysis of adhesions. By her report she had a recent cardiac catheterization without significant abnormality. Review of Systems Constitutional: DENIES: Fever, Chills Eyes: DENIES: Eye inflammation, Eye pain Ears, nose, mouth, throat: DENIES: Nasal discharge, Oral lesions Cardiovascular: DENIES: Chest pain, Lower Extremity Edema Gastrointestinal: COMPLAINS OF: Abdominal pain, Nausea, Vomiting Integumentary: DENIES: Pruritus, Rash Neurologic: DENIES: Paresthesias, Seizures Past Family Social History Past Medical History Arthritis GERD Glaucoma Hypertension Diverticulitis Right colon polyp Migraine headaches Recurrent UTI Left breast cancer Her 2+ Past Surgical History See HPI Reported Medications Reported Meds & Active Scripts Active Reported Methenamine Hippurate 1 Gram Tab 1 Gm PO BID Cranberry Urinary Comfort (Vitamins C & E) 1 Cap 1 Cap PO DAILY Latanoprost Opth Drops (Latanoprost) 0.005% Drops 1 Drop EACH EYE HS Refrigerate until opened. Dorzolamide-Timolol Opth Drops 22.3-6.8 Mg/Ml Soln 1 Drop EACH EYE BID Triamterene-Hydrochlorothiazide 37.5-25 Mg Tab 1 Tab PO DAILY Losartan (Losartan Potassium) 25 Mg Tab 25 Mg PO DAILY Atenolol 25 Mg Tab 25 Mg PO DAILY Flax Seeds (Flaxseed (Linseed)) 1 Pow Pow 1 Mg PO DIRECTED Cholestyramine 4 Gm/Dose Powd 4 Gm PO HS 1 level scoopful of powder contains 4 grams of cholestyramine. Nitrostat SL (Nitroglycerin) 0.4 Mg Subl 0.4 Mg SL DIRECTED PRN 1 tablet under the tongue as needed for chest pain. Repeat every 5 minutes for a total of 3 DOSES or call 911 if NO relief. Dermotic Otic Drops (Fluocinolone Otic Drops) 0.01% Drops 1 Drop EACH EAR DAILY Ranitidine (Ranitidine HCl) 150 Mg Tab 150 Mg PO DAILY Probiotic (Lactobacillus Acidophilus) 1 Cap Cap 1 Cap PO TIDAC Vitamin D3 (Cholecalciferol) 2,000 Unit Cap 2,000 Units PO DAILY Tylenol Extra Strength (Acetaminophen) 500 Mg Tablet 500 Mg PO Q6HR Calcium 500 +D (Calcium Carbonate-Cholecalciferol) 500-400 Mg-Unit Tab 1 Tab PO BID Arimidex (Anastrozole) 1 Mg Tab 1 Mg PO DAILY Allergies: Coded Allergies: brimonidine (Unverified Allergy, Severe, 10/19/16) lactose (Unverified Allergy, Severe, GI SXS, 10/19/16) meloxicam (Unverified Allergy, Severe, 10/19/16) zoledronic acid (Unverified Allergy, Severe, 10/19/16) iohexol (Unverified Allergy, Unknown, Meds Given - Hives/Rash, 10/19/16) ciprofloxacin (Unverified Adverse Reaction, Severe, DIARRHEA, 10/19/16) meperidine (Unverified Adverse Reaction, Severe, NAUSEA, 10/19/16) diclofenac (Unverified Adverse Reaction, Mild, DYSPEPSIA, 10/19/16) etodolac (Unverified Adverse Reaction, Mild, DYSPEPSIA, 10/19/16) flurbiprofen (Unverified Adverse Reaction, Mild, DYSPEPSIA, 10/19/16) ibuprofen (Unverified Adverse Reaction, Mild, DYSPEPSIA, 10/19/16) indomethacin (Unverified Adverse Reaction, Mild, DYSPEPSIA, 10/19/16) ketoprofen (Unverified Adverse Reaction, Mild, DYSPEPSIA, 10/19/16) ketorolac (Unverified Adverse Reaction, Mild, DYSPEPSIA, 10/19/16) naproxen (Unverified Adverse Reaction, Mild, DYSPEPSIA, 10/19/16) oxaprozin (Unverified Adverse Reaction, Mild, DYSPEPSIA, 10/19/16) Active Ordered Medications Current Medications Medications (Trade) Dose Ordered Sig/Jeri Route Start Time Stop Time Status Last Admin Dextrose/Sodium Chloride 1,000 ml @ 100 mls/hr Q10H IV 06/03/17 06:15 06/03/17 06:20 (Morphine Inj) 2 mg Q3H PRN IV PUSH 06/03/17 06:15 Potassium Chloride 100 ml @ 50 mls/hr ONCE ONCE IV 06/03/17 09:00 06/03/17 10:59 06/03/17 09:55 (Cosopt 2-0.5% Opth Soln) 1 drop BID EACH EYE 06/03/17 09:00 (Xalatan 0.005% Opth Soln) 1 drop HS EACH EYE 06/03/17 21:00 Family History Noncontributory Social History Her is here with her. No ETOH, tobacco or drug use. She is independent. Physical Exam Vital Signs Vital Signs Date Time Temp Pulse Resp B/P (MAP) Pulse Ox O2 Delivery O2 Flow Rate FiO2 06/03/17 09:51 91 17 115/58 (77) 100 Room Air 06/03/17 07:34 85 17 122/59 (80) 100 Room Air 06/03/17 05:27 90 16 144/66 (92) 98 Room Air 06/03/17 04:32 84 18 183/74 (110) 98 Room Air 06/03/17 03:47 98.1 84 16 193/78 (116) 99 Physical Exam GENERAL: Awake and alert. No acute distress. Cooperative. Elderly somewhat frail. HEAD: Normocephalic. Atraumatic. EYES: Pupils equal round and reactive to light bilaterally. No scleral icterus. ENT: Moist oral mucosa. NECK: Trachea midline. CHEST: Lungs clear to auscultation bilaterally with no wheezing or rhonchi. No respiratory distress. CARDIOVASCULAR: Regular rate and rhythm. ABDOMEN: Moderate distention. Multiple scars including upper transverse, midline, RLQ. Moderate to severe tenderness in most lower abdomen left worse then right. EXTREMITIES: No cyanosis or edema. SKIN: Warm, dry, nonjaundiced. Laboratory Laboratory Tests Test 06/03/17 04:05 White Blood Count 21.1 Red Blood Count 4.68 Hemoglobin 13.9 Hematocrit 40.7 Mean Corpuscular Volume 86.9 Mean Corpuscular Hemoglobin 29.8 Mean Corpuscular Hemoglobin Concent 34.3 Red Cell Distribution Width 13.4 Platelet Count 260 Mean Platelet Volume 7.7 Neutrophils (%) (Auto) 85.2 Lymphocytes (%) (Auto) 6.8 Monocytes (%) (Auto) 7.0 Eosinophils (%) (Auto) 0.7 Basophils (%) (Auto) 0.3 Neutrophils # (Auto) 18.0 Lymphocytes # (Auto) 1.4 Monocytes # (Auto) 1.5 Eosinophils # (Auto) 0.1 Basophils # (Auto) 0.1 CBC Comment DIFF FINAL Differential Comment Urine Color YELLOW Urine Turbidity CLEAR Urine pH 5.5 Urine Specific [place] 1.021 Urine Protein TRACE Urine Glucose (UA) NEG Urine Ketones NEG Urine Occult Blood MOD Urine Nitrite NEG Urine Bilirubin NEG Urine Urobilinogen LESS THAN 2.0 Urine Leukocyte Esterase NEG Urine RBC 6 Urine WBC LESS THAN 1 Urine Squamous Epithelial Cells <1 Urine Hyaline Casts 1 Urine Mucus FEW Blood Urea Nitrogen 20 Creatinine 0.92 Random Glucose 157 Total Protein 7.9 Albumin 4.0 Calcium Level 9.5 Alkaline Phosphatase 48 Aspartate Amino Transf (AST/SGOT) 18 Alanine Aminotransferase (ALT/SGPT) 22 Total Bilirubin 0.6 Sodium Level 138 Potassium Level 3.4 Chloride Level 100 Carbon Dioxide Level 29.1 Anion Gap 9 Estimat Glomerular Filtration Rate 59 Total Creatine Kinase 95 Troponin I LESS THAN 0.02 Lipase 113 Result Diagram: 06/03/1740406/03/17404 Imaging Last Impressions Chest X-Ray 06/03/17401 Signed Impressions: Service Date/Time: Saturday, June 03, 2017 04:22 - CONCLUSION: No acute abnormality demonstrated. Joe Sanders MD Abdomen X-Ray 06/03/17401 Signed Impressions: Service Date/Time: Saturday, June 03, 2017 04:24 - CONCLUSION: Benign- appearing abdomen. Previous cholecystectomy and bowel surgery. Joe Sanders MD Abdomen/Pelvis CT 06/03/17 0000 Signed Impressions: Service Date/Time: Saturday, June 03, 2017 05:32 - CONCLUSION: 1. Small bowel obstruction that appears to be intermediate grade and occurring within the anterior aspect of the pelvic cavity at the level of the proximal ileum. No perceptible mass. Patient has had previous midline laparotomy and obstruction is presumably related to an adhesion. 2. Previous ileocolic surgery with anastomosis, not appearing to be acutely contributory. Joe Sanders MD Assessment and Plan Assessment and Plan 81 yo F with extensive previous surgical history with apparent small bowel obstruction. CT is without any contrast. She has leukocytosis and significant tenderness. Place NGT and repeat CT with oral contrast. Check lactic acid. I will recheck her later today. It is possible she will need surgical intervention which would likely be extensive lysis of adhesions due to many previous surgeries. Herbie Nguyen MD Jun 03, 2017 10:37
[2017-06-03] MEDS: DORZOLAMIDE/TIMOLOL OPTH SOLN 10 ML BTL EACH EYE SCH ×2 (10:57→21:00)
[2017-06-03] MEDS ORDERED: DIATRIZOATE MEGLUM/DIATRIZOATE SOD 9 ML CUP PO ONE ×2 (11:45→16:45)
[2017-06-03 17:05] LABS: AUTOMATED NEUTROPHIL # 5.7 TH/MM3 (1.8-7.7); BASOPHIL % 0.4 % (0.0-2.0); EOSINOPHIL # 0.1 TH/MM3 (0-0.4); EOSINOPHIL % 1.4 % (0.0-4.0); HEMATOCRIT 36.5 % (35.0-46.0); HEMOGLOBIN 12.6 GM/DL (11.6-15.3); LYMPH % 12.5 % (9.0-44.0); MEAN CELL VOLUME 87.3 FL (80.0-100.0); MEAN CORPUSCULAR HEMOGLOBIN 30.1 PG (27.0-34.0); MEAN CORPUSCULAR HGB CONC 34.5 % (32.0-36.0); MEAN PLATELET VOLUME 7.7 FL (7.0-11.0); MONO % 10.5 % (0.0-8.0); MONOCYTE # 0.8 TH/MM3 (0-0.9); NEUT % 75.2 % (16.0-70.0); PLATELET COUNT 223 TH/MM3 (150-450); RED BLOOD COUNT 4.18 MIL/MM3 (4.00-5.30); RED CELL DISTRIBUTION WIDTH 13.7 % (11.6-17.2); WHITE BLOOD COUNT 7.6 TH/MM3 (4.0-11.0)
--- NOTE | 2017-06-03 17:26 | HHI.PR ---
Subjective Subjective Notes She feels about the same. NG placed and part of repeat CT performed. Repeat CBC shows normal WBC. Objective Vitals/I&O Vital Signs Date Time Temp Pulse Resp B/P (MAP) Pulse Ox O2 Delivery O2 Flow Rate FiO2 06/03/17 12:00 98.5 94 18 128/60 (82) 96 06/03/17 09:51 Room Air Labs Laboratory Tests Test 06/03/17 04:05 06/03/17 16:42 White Blood Count 21.1 7.6 Red Blood Count 4.68 4.18 Hemoglobin 13.9 12.6 Hematocrit 40.7 36.5 Mean Corpuscular Volume 86.9 87.3 Mean Corpuscular Hemoglobin 29.8 30.1 Mean Corpuscular Hemoglobin Concent 34.3 34.5 Red Cell Distribution Width 13.4 13.7 Platelet Count 260 223 Mean Platelet Volume 7.7 7.7 Neutrophils (%) (Auto) 85.2 75.2 Lymphocytes (%) (Auto) 6.8 12.5 Monocytes (%) (Auto) 7.0 10.5 Eosinophils (%) (Auto) 0.7 1.4 Basophils (%) (Auto) 0.3 0.4 Neutrophils # (Auto) 18.0 5.7 Lymphocytes # (Auto) 1.4 1.0 Monocytes # (Auto) 1.5 0.8 Eosinophils # (Auto) 0.1 0.1 Basophils # (Auto) 0.1 0.0 CBC Comment DIFF FINAL DIFF FINAL Differential Comment Urine Color YELLOW Urine Turbidity CLEAR Urine pH 5.5 Urine Specific [place] 1.021 Urine Protein TRACE Urine Glucose (UA) NEG Urine Ketones NEG Urine Occult Blood MOD Urine Nitrite NEG Urine Bilirubin NEG Urine Urobilinogen LESS THAN 2.0 Urine Leukocyte Esterase NEG Urine RBC 6 Urine WBC LESS THAN 1 Urine Squamous Epithelial Cells <1 Urine Hyaline Casts 1 Urine Mucus FEW Blood Urea Nitrogen 20 Creatinine 0.92 Random Glucose 157 Total Protein 7.9 Albumin 4.0 Calcium Level 9.5 Alkaline Phosphatase 48 Aspartate Amino Transf (AST/SGOT) 18 Alanine Aminotransferase (ALT/SGPT) 22 Total Bilirubin 0.6 Sodium Level 138 Potassium Level 3.4 Chloride Level 100 Carbon Dioxide Level 29.1 Anion Gap 9 Estimat Glomerular Filtration Rate 59 Total Creatine Kinase 95 Troponin I LESS THAN 0.02 Lipase 113 Radiology Last Impressions Chest X-Ray 06/03/172 Signed Impressions: Service Date/Time: Saturday, June 03, 2017 04:22 - CONCLUSION: No acute abnormality demonstrated. Joe Sanders MD Abdomen X-Ray 06/03/17401 Signed Impressions: Service Date/Time: Saturday, June 03, 2017 04:24 - CONCLUSION: Benign- appearing abdomen. Previous cholecystectomy and bowel surgery. Joe Sanders MD Abdomen/Pelvis CT 06/03/17 0000 Signed Impressions: Service Date/Time: Saturday, June 03, 2017 05:32 - CONCLUSION: 1. Small bowel obstruction that appears to be intermediate grade and occurring within the anterior aspect of the pelvic cavity at the level of the proximal ileum. No perceptible mass. Patient has had previous midline laparotomy and obstruction is presumably related to an adhesion. 2. Previous ileocolic surgery with anastomosis, not appearing to be acutely contributory. Joe Sanders MD Narrative Exam Abd: still quite tender LLQ, softer A/P Assessment and Plan 81 yo F with extensive prior surgical history, SBO Follow closely. Repeat labs, KUB, exam in am. If persistently tender and obstructed will likely need laparotomy. Discussed in detail with the patient and her son. Herbie Nguyen MD Jun 03, 2017 17:26
[2017-06-03] MEDS: LATANOPROST 0.005% OPHT SOLN 2.5 ML BTL EACH EYE SCH (21:00)
--- NOTE | 2017-06-03 21:28 | RADRPT ---
EXAM DATE/TIME: 06/03/2017 15:40 [facility] COMPARISON: CT ABDOMEN & PELVIS W/O CONTRAST, June 03, 2017, 5:32. INDICATIONS : Evaluate for obstruction. ORAL CONTRAST: Prescribed oral contrast ingested. RADIATION DOSE: 6.57 CTDIvol (mGy) MEDICAL HISTORY : Hypertension. Hernia, hiatal. SURGICAL HISTORY : Appendectomy. Cholecystectomy.Hysterectomy.Colon resection ENCOUNTER: Subsequent ACUITY: 1 day PAIN SCALE: 0/10 LOCATION: anterior TECHNIQUE: Volumetric scanning of the abdomen and pelvis was performed. Using automated exposure control and ad justment of the mA and/or kV according to patient size, radiation dose was kept as low as reasonably achievable to obtain optimal diagnostic quality images. DICOM format image data is available electro nically for review and comparison. FINDINGS: The study was initially viewed at the time was obtained. It is recommended the patient be rescanned a fter additional oral contrast was administered. The patient could not tolerate additional oral contra st. LOWER LUNGS: There is increased density at the posterior lung bases likely related to dependent atelectasis. LIVER: Homogeneous density without lesion. There is no dilation of the biliary tree. The patient is status post cholecystectomy. SPLEEN: Normal size without lesion. PANCREAS: Within normal limits. KIDNEYS: Normal in size and shape. There is no mass, stone, or hydronephrosis. ADRENAL GLANDS: Within normal limits. VASCULAR: There is no aortic aneurysm. BOWEL/MESENTERY: There is an NG tube in place. The proximal small bowel is dilated. There is a transition point seen i n the lower abdomen/pelvic region in midline. The oral contrast on the delayed images extends to this region. The transitional area has debris within the lumen. Immediately beyond this 8.5 cm long segme nt of debris filled small bowel, the more distal small bowel is decompressed. Bowel sutures are seen at the proximal aspect of the colon in the right lower quadrant and in the rectosigmoid junction gabrielle on. There a few scattered sigmoid colon diverticula. ABDOMINAL WALL: Within normal limits. RETROPERITONEUM: There is no lymphadenopathy. BLADDER: No wall thickening or mass. REPRODUCTIVE: Within normal limits. INGUINAL: There is no lymphadenopathy or hernia. MUSCULOSKELETAL: There is a small area of focal sclerosis at the L3 vertebral body. There is also sclerosis of the med ial left pubic bone. CONCLUSION: 1. Small bowel stricture in the mid small bowel with a transition point seen in the midline in the lo wer abdomen/pelvic region. The cause of small bowel obstruction is not clearly identified. 2. Areas of focal sclerosis at the L3 vertebral body and left pubic bone. These are nonspecific. They could be secondary to metastatic lesions. Joe Bennett MD on June 03, 2017 at 20:20 Board Certified Radiologist. This report was verified electronically.
[2017-06-04] MEDS: DEXT 5%-NACL 0.9% 1000 ML INJ 1,000 ML IV SCH ×3 (02:15→22:53)
--- NOTE | 2017-06-04 03:18 | RADRPT ---
EXAM DATE/TIME: 06/04/2017 02:33 [facility] COMPARISON: No previous studies available for comparison. INDICATIONS : SBO. MEDICAL HISTORY : Hypertension. Hernia, hiatal. SURGICAL HISTORY : Appendectomy. Cholecystectomy.Hysterectomy.Colon resection ENCOUNTER: Subsequent ACUITY: 1 day PAIN SCORE: 0/10 LOCATION: Abdomen. FINDINGS: Supine view of the abdomen was performed. The abdominal bowel gas pattern is normal. No abnormal ma sses, calcifications, or organomegaly is seen. The osseous structures are unremarkable. CONCLUSION: Normal examination. NG tube within the stomach. Contrast in the colon. Cholecystectomy clips James Mackey MD on June 04, 2017 at 3:16 Board Certified Radiologist. This report was verified electronically.
[2017-06-04 04:00] VITALS: BP 132/63; PULSE 75; RESP 18; TEMP 98; O2SAT 93
[2017-06-04 06:27] LABS: AUTOMATED NEUTROPHIL # 3.7 TH/MM3 (1.8-7.7); BASOPHIL % 0.5 % (0.0-2.0); EOSINOPHIL # 0.1 TH/MM3 (0-0.4); EOSINOPHIL % 1.5 % (0.0-4.0); HEMATOCRIT 34.5 % (35.0-46.0); HEMOGLOBIN 11.8 GM/DL (11.6-15.3); LYMPH % 28.5 % (9.0-44.0); LYMPHOCYTE # 1.8 TH/MM3 (1.0-4.8); MEAN CELL VOLUME 87.3 FL (80.0-100.0); MEAN CORPUSCULAR HEMOGLOBIN 29.8 PG (27.0-34.0); MEAN CORPUSCULAR HGB CONC 34.1 % (32.0-36.0); MEAN PLATELET VOLUME 8.1 FL (7.0-11.0); MONO % 12.5 % (0.0-8.0); MONOCYTE # 0.8 TH/MM3 (0-0.9); PLATELET COUNT 183 TH/MM3 (150-450); RED BLOOD COUNT 3.95 MIL/MM3 (4.00-5.30); RED CELL DISTRIBUTION WIDTH 13.7 % (11.6-17.2); WHITE BLOOD COUNT 6.5 TH/MM3 (4.0-11.0)
[2017-06-04 08:11] LABS: BICARBONATE 29.6 MEQ/L (21.0-32.0); CREATININE 0.64 MG/DL (0.50-1.00)
[2017-06-04 08:24] VITALS: BP 117/57; PULSE 82; RESP 18; TEMP 100.1; O2SAT 96
--- NOTE | 2017-06-04 08:51 | HHI.PR ---
Subjective Subjective Notes Pain somewhat improved. No flatus or BM. Objective Vitals/I&O Vital Signs Date Time Temp Pulse Resp B/P (MAP) Pulse Ox O2 Delivery O2 Flow Rate FiO2 06/04/17 08:24 100.1 82 18 117/57 (77) 96 06/03/17 09:51 Room Air Labs Laboratory Tests Test 06/03/17 16:42 06/04/17 05:27 White Blood Count 7.6 6.5 Red Blood Count 4.18 3.95 Hemoglobin 12.6 11.8 Hematocrit 36.5 34.5 Mean Corpuscular Volume 87.3 87.3 Mean Corpuscular Hemoglobin 30.1 29.8 Mean Corpuscular Hemoglobin Concent 34.5 34.1 Red Cell Distribution Width 13.7 13.7 Platelet Count 223 183 Mean Platelet Volume 7.7 8.1 Neutrophils (%) (Auto) 75.2 57.0 Lymphocytes (%) (Auto) 12.5 28.5 Monocytes (%) (Auto) 10.5 12.5 Eosinophils (%) (Auto) 1.4 1.5 Basophils (%) (Auto) 0.4 0.5 Neutrophils # (Auto) 5.7 3.7 Lymphocytes # (Auto) 1.0 1.8 Monocytes # (Auto) 0.8 0.8 Eosinophils # (Auto) 0.1 0.1 Basophils # (Auto) 0.0 0.0 CBC Comment DIFF FINAL DIFF FINAL Differential Comment Lactic Acid Level 1.6 Blood Urea Nitrogen 10 Creatinine 0.64 Random Glucose 131 Calcium Level 8.0 Sodium Level 144 Potassium Level 3.5 Chloride Level 106 Carbon Dioxide Level 29.6 Anion Gap 8 Estimat Glomerular Filtration Rate 89 Radiology Last Impressions Chest X-Ray 06/03/17401 Signed Impressions: Service Date/Time: Saturday, June 03, 2017 04:22 - CONCLUSION: No acute abnormality demonstrated. Joe Sanders MD Abdomen X-Ray 06/03/17401 Signed Impressions: Service Date/Time: Saturday, June 03, 2017 04:24 - CONCLUSION: Benign- appearing abdomen. Previous cholecystectomy and bowel surgery. Joe Sanders MD Abdomen/Pelvis CT 06/03/17 0000 Signed Impressions: Service Date/Time: Saturday, June 03, 2017 05:32 - CONCLUSION: 1. Small bowel obstruction that appears to be intermediate grade and occurring within the anterior aspect of the pelvic cavity at the level of the proximal ileum. No perceptible mass. Patient has had previous midline laparotomy and obstruction is presumably related to an adhesion. 2. Previous ileocolic surgery with anastomosis, not appearing to be acutely contributory. Joe Sanders MD Narrative Exam Abd: mild tenderness LLQ, softer A/P Assessment and Plan 81 yo F with extensive prior surgical history, SBO Repeat CT a/p yesterday again showed transition point mid small bowel. KUB this am with contrast in colon so obstruction is only partial. WBC completely normal now. Pain and tenderness improving. Await return of bowel function. Continue NGT to suction. Fortunately it looks like she will likely not need an operation. Herbie Nguyen MD Jun 04, 2017 08:51
[2017-06-04] MEDS: DORZOLAMIDE/TIMOLOL OPTH SOLN 10 ML BTL EACH EYE SCH ×2 (08:53→21:00)
[2017-06-04 12:32] VITALS: BP 153/63; PULSE 77; RESP 18; TEMP 98.9; O2SAT 95
[2017-06-04 16:00] VITALS: BP 125/67; PULSE 80; RESP 18; TEMP 99.2; O2SAT 93
--- NOTE | 2017-06-04 16:35 | HHI.PR ---
Subjective Remarks Patient reports feeling better than yesterday - no longer requiring pain medication patient c/o feeling hungry no flatus as of yet NG tube with red/black liquid Objective Vitals Vital Signs Date Time Temp Pulse Resp B/P (MAP) Pulse Ox O2 Delivery O2 Flow Rate FiO2 06/04/17 12:32 98.9 77 18 153/63 (93) 95 06/04/17 08:24 100.1 82 18 117/57 (77) 96 06/04/17 04:00 98.0 75 18 132/63 (86) 93 Result Diagram: 06/04/1727 06/04/1727 Other Results Laboratory Tests Test 06/03/17 04:05 06/03/17 16:42 06/04/17 05:27 White Blood Count 21.1 TH/MM3 7.6 TH/MM3 6.5 TH/MM3 Red Blood Count 4.68 MIL/MM3 4.18 MIL/MM3 3.95 MIL/MM3 Hemoglobin 13.9 GM/DL 12.6 GM/DL 11.8 GM/DL Hematocrit 40.7 % 36.5 % 34.5 % Mean Corpuscular Volume 86.9 FL 87.3 FL 87.3 FL Mean Corpuscular Hemoglobin 29.8 PG 30.1 PG 29.8 PG Mean Corpuscular Hemoglobin Concent 34.3 % 34.5 % 34.1 % Red Cell Distribution Width 13.4 % 13.7 % 13.7 % Platelet Count 260 TH/MM3 223 TH/MM3 183 TH/MM3 Mean Platelet Volume 7.7 FL 7.7 FL 8.1 FL Neutrophils (%) (Auto) 85.2 % 75.2 % 57.0 % Lymphocytes (%) (Auto) 6.8 % 12.5 % 28.5 % Monocytes (%) (Auto) 7.0 % 10.5 % 12.5 % Eosinophils (%) (Auto) 0.7 % 1.4 % 1.5 % Basophils (%) (Auto) 0.3 % 0.4 % 0.5 % Neutrophils # (Auto) 18.0 TH/MM3 5.7 TH/MM3 3.7 TH/MM3 Lymphocytes # (Auto) 1.4 TH/MM3 1.0 TH/MM3 1.8 TH/MM3 Monocytes # (Auto) 1.5 TH/MM3 0.8 TH/MM3 0.8 TH/MM3 Eosinophils # (Auto) 0.1 TH/MM3 0.1 TH/MM3 0.1 TH/MM3 Basophils # (Auto) 0.1 TH/MM3 0.0 TH/MM3 0.0 TH/MM3 CBC Comment DIFF FINAL DIFF FINAL DIFF FINAL Differential Comment Urine Color YELLOW Urine Turbidity CLEAR Urine pH 5.5 Urine Specific [place] 1.021 Urine Protein TRACE mg/dL Urine Glucose (UA) NEG mg/dL Urine Ketones NEG mg/dL Urine Occult Blood MOD Urine Nitrite NEG Urine Bilirubin NEG Urine Urobilinogen LESS THAN 2.0 MG/DL Urine Leukocyte Esterase NEG Urine RBC 6 /hpf Urine WBC LESS THAN 1 /hpf Urine Squamous Epithelial Cells <1 /hpf Urine Hyaline Casts 1 /lpf Urine Mucus FEW /lpf Blood Urea Nitrogen 20 MG/DL 10 MG/DL Creatinine 0.92 MG/DL 0.64 MG/DL Random Glucose 157 MG/DL 131 MG/DL Total Protein 7.9 GM/DL Albumin 4.0 GM/DL Calcium Level 9.5 MG/DL 8.0 MG/DL Alkaline Phosphatase 48 U/L Aspartate Amino Transf (AST/SGOT) 18 U/L Alanine Aminotransferase (ALT/SGPT) 22 U/L Total Bilirubin 0.6 MG/DL Sodium Level 138 MEQ/L 144 MEQ/L Potassium Level 3.4 MEQ/L 3.5 MEQ/L Chloride Level 100 MEQ/L 106 MEQ/L Carbon Dioxide Level 29.1 MEQ/L 29.6 MEQ/L Anion Gap 9 MEQ/L 8 MEQ/L Estimat Glomerular Filtration Rate 59 ML/MIN 89 ML/MIN Total Creatine Kinase 95 U/L Troponin I LESS THAN 0.02 NG/ML Lipase 113 U/L Lactic Acid Level 1.6 mmol/L Imaging Last Impressions Chest X-Ray 06/03/17401 Signed Impressions: Service Date/Time: Saturday, June 03, 2017 04:22 - CONCLUSION: No acute abnormality demonstrated. Joe Sanders MD Abdomen X-Ray 06/03/17401 Signed Impressions: Service Date/Time: Saturday, June 03, 2017 04:24 - CONCLUSION: Benign- appearing abdomen. Previous cholecystectomy and bowel surgery. Joe Sanders MD Abdomen/Pelvis CT 06/03/17 0000 Signed Impressions: Service Date/Time: Saturday, June 03, 2017 05:32 - CONCLUSION: 1. Small bowel obstruction that appears to be intermediate grade and occurring within the anterior aspect of the pelvic cavity at the level of the proximal ileum. No perceptible mass. Patient has had previous midline laparotomy and obstruction is presumably related to an adhesion. 2. Previous ileocolic surgery with anastomosis, not appearing to be acutely contributory. Joe Sanders MD Objective Remarks GENERAL: This is a well-nourished, well-developed patient, in no apparent distress. CARDIOVASCULAR: Regular rate and rhythm RESPIRATORY: Clear to auscultation. Breath sounds equal bilaterally. GASTROINTESTINAL: Abdomen soft, non-tender, nondistended. Normal active bowel sounds MUSCULOSKELETAL: Extremities without clubbing, cyanosis, or edema. NEURO: Alert & Oriented x4 to person, place, time, situation. Moves all ext x4 A/P Problem List: (1) SBO (small bowel obstruction) ICD Codes: K56.609 - Unspecified intestinal obstruction, unspecified as to partial versus complete obstruction Plan: CT of the abdomen and pelvis reviewed and reveals small bowel obstruction that appears to be intermittent grade and occurring within the anterior aspect of the pelvic cavity at the level of the proximal ileum. No perceptible mass. Patient has had previous midline laparoscopic and short action is presumably related to an adhesion. Previous ileocecal surgery with anastomosis, not appearing to be acutely contributing - Patient nothing by mouth - NGT to LIWS - Consult general surgery, appreciate assistance - Repeat CT with contrast reviewed an reveals: Small bowel obstruction that appears to be intermediate grade and occurring within the anterior aspect of the pelvic cavity at the level of the proximal ileum. No perceivable mass. Patient has had previous midline laparotomy and obstruction is presumably related to an adhesion. Previous ileocecal surgery with anastomosis, not appearing to be acutely contributing - Lactic acid 1.6 - continue IV fluid for hydration - Supportive care - KUB (06/04) normal exam. NG tube within the stomach. Contrast in the colon. Cholecystectomy clips - Small bowel traction. Partial small bowel traction as there is contrast and then the colon - NGT with red/black liquid noted -> STAT H&H, clamp NGT, call placed to surgery, patient started on Protonix 40 mg IV BID - NPO (2) Hypokalemia ICD Codes: E87.6 - Hypokalemia Plan: Replaced recheck in a.m. (3) Leukocytosis ICD Codes: D72.829 - Elevated white blood cell count, unspecified Status: Resolved Plan: White blood cell count 21.1 -> (06/03) 7.6 -> (06/04) 6.5 - patient with initially had diffusely tender abd -> improving - consult general surgery, appreciate input - Lactic acid pending 1.6 Assessment and Plan Patient examined. Assessment and plan formulated with Jenae Hernandez PA-C. I agree with the above. Jenae Hernandez Jun 04, 2017 16:34 Angel Kimball DO Jun 05, 2017 13:52
[2017-06-04] MEDS ORDERED: ONDANSETRON HCL 4 MG/2 ML VIAL IV PUSH PRN (18:00)
[2017-06-04 19:41] LABS: HEMATOCRIT 33.1 % (35.0-46.0); HEMOGLOBIN 11.5 GM/DL (11.6-15.3)
[2017-06-04 20:00] VITALS: BP 134/63; PULSE 79; RESP 18; TEMP 99.1; O2SAT 94
[2017-06-04] MEDS: PANTOPRAZOLE SODIUM 40 MG VIAL IV PUSH SCH (20:54)
[2017-06-04] MEDS: LATANOPROST 0.005% OPHT SOLN 2.5 ML BTL EACH EYE SCH (21:49)
[2017-06-05 00:07] LABS: HEMATOCRIT 32.1 % (35.0-46.0)
[2017-06-05 00:25] VITALS: BP 131/63; PULSE 76; RESP 18; TEMP 98.1; O2SAT 94
[2017-06-05 05:00] VITALS: BP 125/64; PULSE 73; RESP 18; TEMP 98.1; O2SAT 95
[2017-06-05 07:12] LABS: HEMATOCRIT 32.2 % (35.0-46.0); HEMOGLOBIN 11.1 GM/DL (11.6-15.3)
[2017-06-05 08:31] VITALS: BP 140/65; PULSE 76; RESP 18; TEMP 98.4; O2SAT 95
[2017-06-05] MEDS: PANTOPRAZOLE SODIUM 40 MG VIAL IV PUSH SCH ×2 (09:18→22:21)
[2017-06-05] MEDS: DEXT 5%-NACL 0.9% 1000 ML INJ 1,000 ML IV SCH (09:22)
[2017-06-05] MEDS: DORZOLAMIDE/TIMOLOL OPTH SOLN 10 ML BTL EACH EYE SCH ×2 (09:26→22:21)
[2017-06-05 12:00] VITALS: BP 165/77; PULSE 74; RESP 18; TEMP 98.7; O2SAT 95
--- NOTE | 2017-06-05 12:17 | HHI.PR ---
Subjective Remarks Patient no having BMs, positive flatus reports abd pain much better Objective Vitals Vital Signs Date Time Temp Pulse Resp B/P (MAP) Pulse Ox O2 Delivery O2 Flow Rate FiO2 06/05/17 08:31 98.4 76 18 140/65 (90) 95 06/05/17 05:00 98.1 73 18 125/64 (84) 95 06/05/17 00:25 98.1 76 18 131/63 (85) 94 06/04/17 20:00 99.1 79 18 134/63 (86) 94 06/04/17 16:00 99.2 80 18 125/67 (86) 93 06/04/17 12:32 98.9 77 18 153/63 (93) 95 Result Diagram: 06/05/17 0645 06/04/17 0527 Other Results Laboratory Tests Test 06/03/17 04:05 06/03/17 16:42 06/04/17 05:27 06/04/17 17:50 White Blood Count 21.1 TH/MM3 7.6 TH/MM3 6.5 TH/MM3 Red Blood Count 4.68 MIL/MM3 4.18 MIL/MM3 3.95 MIL/MM3 Hemoglobin 13.9 GM/DL 12.6 GM/DL 11.8 GM/DL 11.5 GM/DL Hematocrit 40.7 % 36.5 % 34.5 % 33.1 % Mean Corpuscular Volume 86.9 FL 87.3 FL 87.3 FL Mean Corpuscular Hemoglobin 29.8 PG 30.1 PG 29.8 PG Mean Corpuscular Hemoglobin Concent 34.3 % 34.5 % 34.1 % Red Cell Distribution Width 13.4 % 13.7 % 13.7 % Platelet Count 260 TH/MM3 223 TH/MM3 183 TH/MM3 Mean Platelet Volume 7.7 FL 7.7 FL 8.1 FL Neutrophils (%) (Auto) 85.2 % 75.2 % 57.0 % Lymphocytes (%) (Auto) 6.8 % 12.5 % 28.5 % Monocytes (%) (Auto) 7.0 % 10.5 % 12.5 % Eosinophils (%) (Auto) 0.7 % 1.4 % 1.5 % Basophils (%) (Auto) 0.3 % 0.4 % 0.5 % Neutrophils # (Auto) 18.0 TH/MM3 5.7 TH/MM3 3.7 TH/MM3 Lymphocytes # (Auto) 1.4 TH/MM3 1.0 TH/MM3 1.8 TH/MM3 Monocytes # (Auto) 1.5 TH/MM3 0.8 TH/MM3 0.8 TH/MM3 Eosinophils # (Auto) 0.1 TH/MM3 0.1 TH/MM3 0.1 TH/MM3 Basophils # (Auto) 0.1 TH/MM3 0.0 TH/MM3 0.0 TH/MM3 CBC Comment DIFF FINAL DIFF FINAL DIFF FINAL Differential Comment Urine Color YELLOW Urine Turbidity CLEAR Urine pH 5.5 Urine Specific [place] 1.021 Urine Protein TRACE mg/dL Urine Glucose (UA) NEG mg/dL Urine Ketones NEG mg/dL Urine Occult Blood MOD Urine Nitrite NEG Urine Bilirubin NEG Urine Urobilinogen LESS THAN 2.0 MG/DL Urine Leukocyte Esterase NEG Urine RBC 6 /hpf Urine WBC LESS THAN 1 /hpf Urine Squamous Epithelial Cells <1 /hpf Urine Hyaline Casts 1 /lpf Urine Mucus FEW /lpf Blood Urea Nitrogen 20 MG/DL 10 MG/DL Creatinine 0.92 MG/DL 0.64 MG/DL Random Glucose 157 MG/DL 131 MG/DL Total Protein 7.9 GM/DL Albumin 4.0 GM/DL Calcium Level 9.5 MG/DL 8.0 MG/DL Alkaline Phosphatase 48 U/L Aspartate Amino Transf (AST/SGOT) 18 U/L Alanine Aminotransferase (ALT/SGPT) 22 U/L Total Bilirubin 0.6 MG/DL Sodium Level 138 MEQ/L 144 MEQ/L Potassium Level 3.4 MEQ/L 3.5 MEQ/L Chloride Level 100 MEQ/L 106 MEQ/L Carbon Dioxide Level 29.1 MEQ/L 29.6 MEQ/L Anion Gap 9 MEQ/L 8 MEQ/L Estimat Glomerular Filtration Rate 59 ML/MIN 89 ML/MIN Total Creatine Kinase 95 U/L Troponin I LESS THAN 0.02 NG/ML Lipase 113 U/L Lactic Acid Level 1.6 mmol/L Test 06/04/17 23:53 06/05/17 06:45 Hemoglobin 11.0 GM/DL 11.1 GM/DL Hematocrit 32.1 % 32.2 % Imaging Last Impressions Chest X-Ray 06/03/17 0402 Signed Impressions: Service Date/Time: Saturday, June 03, 2017 04:22 - CONCLUSION: No acute abnormality demonstrated. Joe Sanders MD Abdomen X-Ray 06/03/17 0402 Signed Impressions: Service Date/Time: Saturday, June 03, 2017 04:24 - CONCLUSION: Benign- appearing abdomen. Previous cholecystectomy and bowel surgery. Joe Sanders MD Abdomen/Pelvis CT 06/03/17 0000 Signed Impressions: Service Date/Time: Saturday, June 03, 2017 05:32 - CONCLUSION: 1. Small bowel obstruction that appears to be intermediate grade and occurring within the anterior aspect of the pelvic cavity at the level of the proximal ileum. No perceptible mass. Patient has had previous midline laparotomy and obstruction is presumably related to an adhesion. 2. Previous ileocolic surgery with anastomosis, not appearing to be acutely contributory. Joe Sanders MD Objective Remarks GENERAL: This is a well-nourished, well-developed patient, in no apparent distress. CARDIOVASCULAR: Regular rate and rhythm RESPIRATORY: Clear to auscultation. Breath sounds equal bilaterally. GASTROINTESTINAL: Abdomen soft, non-tender, nondistended. Normal active bowel sounds. NG tube in place and clamped MUSCULOSKELETAL: Extremities without clubbing, cyanosis, or edema. NEURO: Alert & Oriented x4 to person, place, time, situation. Moves all ext x4 A/P Problem List: (1) SBO (small bowel obstruction) ICD Codes: K56.609 - Unspecified intestinal obstruction, unspecified as to partial versus complete obstruction Plan: CT of the abdomen and pelvis reviewed and reveals small bowel obstruction that appears to be intermittent grade and occurring within the anterior aspect of the pelvic cavity at the level of the proximal ileum. No perceptible mass. Patient has had previous midline laparoscopic and short action is presumably related to an adhesion. Previous ileocecal surgery with anastomosis, not appearing to be acutely contributing - Patient nothing by mouth - NGT to LIWS - Consult general surgery, appreciate assistance - Repeat CT with contrast reviewed an reveals: Small bowel obstruction that appears to be intermediate grade and occurring within the anterior aspect of the pelvic cavity at the level of the proximal ileum. No perceivable mass. Patient has had previous midline laparotomy and obstruction is presumably related to an adhesion. Previous ileocecal surgery with anastomosis, not appearing to be acutely contributing - Lactic acid 1.6 - continue IV fluid for hydration - Supportive care - KUB (06/04) normal exam. NG tube within the stomach. Contrast in the colon. Cholecystectomy clips - Small bowel traction. Partial small bowel traction as there is contrast and then the colon - NGT- clamped - Hgb stable - Protonix 40 mg IV BID - (06/05) patient having BMs and passing flatus - Advance diet to clears, DC NGT once patient tolerating clears - DC IVF (2) Hypokalemia ICD Codes: E87.6 - Hypokalemia Plan: Replaced recheck in a.m. (3) Leukocytosis ICD Codes: D72.829 - Elevated white blood cell count, unspecified Status: Resolved Plan: White blood cell count 21.1 -> (06/03) 7.6 -> (06/04) 6.5 - patient with initially had diffusely tender abd -> improving - consult general surgery, appreciate input - Lactic acid pending 1.6 Assessment and Plan Patient examined. Assessment and plan formulated with Jenae Hernandez PA-C. I agree with the above. Pt more comfortable. Pt tolerating clears. Abd soft, +BS x 4 Pt had several BMs. Can remove NGT. Case d/w Dr. Nguyen (06/05) Jenae Hernandez Jun 05, 2017 12:17 Angel Kimball DO Jun 05, 2017 13:54
--- NOTE | 2017-06-05 13:11 | HHI.PR ---
Subjective Subjective Notes Feeling better. NGT has been clamped since yesterday without nausea. Tolerating clears. Multiple liquid BMs. Objective Vitals/I&O Vital Signs Date Time Temp Pulse Resp B/P (MAP) Pulse Ox O2 Delivery O2 Flow Rate FiO2 06/05/17 12:00 98.7 74 18 165/77 (106) 95 06/03/17 09:51 Room Air Labs Laboratory Tests Test 06/04/17 17:50 06/04/17 23:53 06/05/17 06:45 Hemoglobin 11.5 11.0 11.1 Hematocrit 33.1 32.1 32.2 Radiology Last Impressions Chest X-Ray 06/03/17401 Signed Impressions: Service Date/Time: Saturday, June 03, 2017 04:22 - CONCLUSION: No acute abnormality demonstrated. Joe Sanders MD Abdomen X-Ray 06/03/17 0402 Signed Impressions: Service Date/Time: Saturday, June 03, 2017 04:24 - CONCLUSION: Benign- appearing abdomen. Previous cholecystectomy and bowel surgery. Joe Sanders MD Abdomen/Pelvis CT 06/03/17 0000 Signed Impressions: Service Date/Time: Saturday, June 03, 2017 05:32 - CONCLUSION: 1. Small bowel obstruction that appears to be intermediate grade and occurring within the anterior aspect of the pelvic cavity at the level of the proximal ileum. No perceptible mass. Patient has had previous midline laparotomy and obstruction is presumably related to an adhesion. 2. Previous ileocolic surgery with anastomosis, not appearing to be acutely contributory. Joe Sanders MD Narrative Exam NAD, awake and alert Abd: mild tenderness LLQ, softer; NG clamped, dark black fluid in tube A/P Assessment and Plan 81 yo F with extensive prior surgical history, SBO Positive BMs. NG clamped with no nausea. D/c NGT. Fulls. D/c IVF. On protonix for possible gastric irritation/ bleeding likely secondary to NGT. Herbie Nguyen MD Jun 05, 2017 13:11
[2017-06-05] MEDS: ATENOLOL 25 MG TAB PO SCH (14:00)
[2017-06-05] MEDS: LOSARTAN 25 MG TAB PO SCH (14:50)
[2017-06-05] MEDS: ANASTROZOLE 1 MG TAB PO SCH (14:50)
[2017-06-05 16:48] VITALS: BP 132/60; PULSE 72; RESP 18; TEMP 98.6; O2SAT 96
[2017-06-05 20:05] VITALS: BP 123/58; PULSE 80; RESP 18; TEMP 98.2; O2SAT 98
[2017-06-05] MEDS: LATANOPROST 0.005% OPHT SOLN 2.5 ML BTL EACH EYE SCH (22:21)
[2017-06-06 00:20] VITALS: BP 121/68; PULSE 72; RESP 18; TEMP 98.4; O2SAT 97
[2017-06-06 04:55] VITALS: BP 130/78; PULSE 80; RESP 18; TEMP 98.9
[2017-06-06 08:00] VITALS: BP 135/60; PULSE 69; RESP 18; TEMP 98.3; O2SAT 98
[2017-06-06] MEDS ORDERED: PROT40TA PO (08:27)
--- NOTE | 2017-06-06 08:31 | HHI.DCPOC ---
Discharge Care Plan Diagnosis: (1) SBO (small bowel obstruction) (2) Hypokalemia Goals to Promote Your Health * To prevent worsening of your condition and complications * To maintain your health at the optimal level Directions to Meet Your Goals Take your medications as prescribed Follow your dietary instruction Follow activity as directed Keep your appointments as scheduled Take your immunizations and boosters as scheduled If your symptoms worsen call your PCP, if no PCP go to Urgent Care Center or Emergency Room Smoking is Dangerous to Your Health. Avoid second hand smoke Call the 24-hour hour crisis hotline for domestic abuse at Jenae Hernandez Jun 06, 2017 08:31
--- NOTE | 2017-06-06 08:31 | HHI.DS ---
Discharge Summary Admission Date Jun 03, 2017 at 06:13 Discharge Date: Jun 06, 2017 Admitting Diagnosis SBO (1) SBO (small bowel obstruction) ICD Codes: K56.609 - Unspecified intestinal obstruction, unspecified as to partial versus complete obstruction (2) Hypokalemia ICD Codes: E87.6 - Hypokalemia (3) Leukocytosis ICD Codes: D72.829 - Elevated white blood cell count, unspecified Status: Resolved Consultants Dr. Nguyen, general surgery Procedures None Brief History This is an 81-year-old female patient with past medical history which includes breast cancer followed by Dr. Wray, arthritis, GERD, glaucoma, hypertension, inflammatory bowel disease with history of diverticulitis and colitis, migraine headaches, recurrent UTIs. Patient has also had partial colectomy in the past and laparoscopic cholecystectomy as well as complete hysterectomy. Patient presented to the emergency department last night with severe abdominal pain after eating peanuts. Patient has history of gastritis and thinks peanuts often trigger her pain. Per ER notes, "On arrival to ER pt was doubling over holding abd, then when to bathroom and had some relief of her pain." Patient at this time patient reports abd pain a little better after having NGT placed. Patient denies flatus. CBC/BMP: 06/05/17 0645 06/04/17 0527 Significant Findings Laboratory Tests Test 06/03/17 16:42 06/04/17 05:27 06/04/17 17:50 06/04/17 23:53 Neutrophils (%) (Auto) 75.2 % (16.0-70.0) Monocytes (%) (Auto) 10.5 % (0.0-8.0) 12.5 % (0.0-8.0) Red Blood Count 3.95 MIL/MM3 (4.00-5.30) Hematocrit 34.5 % (35.0-46.0) 33.1 % (35.0-46.0) 32.1 % (35.0-46.0) Random Glucose 131 MG/DL (74-106) Calcium Level 8.0 MG/DL (8.5-10.1) Hemoglobin 11.5 GM/DL (11.6-15.3) 11.0 GM/DL (11.6-15.3) Test 06/05/17 06:45 Hemoglobin 11.1 GM/DL (11.6-15.3) Hematocrit 32.2 % (35.0-46.0) Imaging Last Impressions Abdomen X-Ray 06/04/17 0600 Signed Impressions: Service Date/Time: Sunday, June 04, 2017 02:33 - CONCLUSION: Normal examination. NG tube within the stomach. Contrast in the colon. Cholecystectomy clips James Mackey MD Chest X-Ray 06/03/17 0402 Signed Impressions: Service Date/Time: Saturday, June 03, 2017 04:22 - CONCLUSION: No acute abnormality demonstrated. Joe Sanders MD Abdomen/Pelvis CT 06/03/17 0000 Signed Impressions: Service Date/Time: Saturday, June 03, 2017 15:40 - CONCLUSION: 1. Small bowel stricture in the mid small bowel with a transition point seen in the midline in the lower abdomen/pelvic region. The cause of small bowel obstruction is not clearly identified. 2. Areas of focal sclerosis at the L3 vertebral body and left pubic bone. These are nonspecific. They could be secondary to metastatic lesions. Joe Bennett MD PE at Discharge GENERAL: This is a well-nourished, well-developed patient, in no apparent distress. CARDIOVASCULAR: Regular rate and rhythm RESPIRATORY: Clear to auscultation. Breath sounds equal bilaterally. GASTROINTESTINAL: Abdomen soft, non-tender, nondistended. Normal active bowel sounds. NG tube in place and clamped MUSCULOSKELETAL: Extremities without clubbing, cyanosis, or edema. NEURO: Alert & Oriented x4 to person, place, time, situation. Moves all ext x4 Hospital Course SBO (small bowel obstruction) CT of the abdomen and pelvis reviewed and reveals small bowel obstruction that appears to be intermittent grade and occurring within the anterior aspect of the pelvic cavity at the level of the proximal ileum. No perceptible mass. Patient has had previous midline laparoscopic and short action is presumably related to an adhesion. Previous ileocecal surgery with anastomosis, not appearing to be acutely contributing - Patient nothing by mouth - NGT to LIWS - Consult general surgery, appreciate assistance - Repeat CT with contrast reviewed an reveals: Small bowel obstruction that appears to be intermediate grade and occurring within the anterior aspect of the pelvic cavity at the level of the proximal ileum. No perceivable mass. Patient has had previous midline laparotomy and obstruction is presumably related to an adhesion. Previous ileocecal surgery with anastomosis, not appearing to be acutely contributing - Lactic acid 1.6 - continue IV fluid for hydration - Supportive care - KUB (06/04) normal exam. NG tube within the stomach. Contrast in the colon. Cholecystectomy clips - Small bowel traction. Partial small bowel traction as there is contrast and then the colon - NGT- clamped - Hgb stable - Protonix 40 mg IV BID - (06/05) patient having BMs and passing flatus - Advance diet, DC NGT - DC IVF - Patient having BMs tolerating soft diet. Plan to DC patient home with instructions to follow up with Dr. Moran her outpatient colorectal surgeon in 1 week Hypokalemia Replaced recheck 3.5 Leukocytosis White blood cell count 21.1 -> (06/03) 7.6 -> (06/04) 6.5 - patient with initially had diffusely tender abd -> improving - consult general surgery, appreciate input - Lactic acid pending 1.6 Pt Condition on Discharge: Stable Discharge Disposition: Discharge Home Discharge Instructions DIET: Follow Instructions for: Heart Healthy Diet, Soft Diet Activities you can perform: Regular-No Restrictions Follow up Referrals: Colorectal Surgery - 1 Week with Siva Jennings MD PCP Follow-up - [address] Norris New Medications: Pantoprazole (Protonix) 40 Mg Tab 40 MG PO DAILY for Reflux, #30 TAB 0 Refills Continued Medications: Acetaminophen (Tylenol Extra Strength) 500 Mg Tablet 500 MG PO Q6HR Anastrozole (Arimidex) 1 Mg Tab 1 MG PO DAILY for Breast Cancer, #30 TAB 0 Refills Atenolol (Atenolol) 25 Mg Tab 25 MG PO DAILY for Blood Pressure Management, #30 TAB Calcium Carbonate-Cholecalciferol (Calcium 500 +D) 500-400 Mg-Unit Tab 1 TAB PO BID for Calcium Supplement, TAB 0 Refills Cholecalciferol (Vitamin D3) 2,000 Unit Cap 2000 UNITS PO DAILY for Nutritional Supplement, #1 BOTTLE 0 Refills Cholestyramine (Cholestyramine) 4 Gm/Dose Powd 4 GM PO HS for Dyslipidemia, #1 CAN 0 Refills 1 level scoopful of powder contains 4 grams of cholestyramine. Dorzolamide-Timolol Opth Drops (Dorzolamide-Timolol Opth Drops) 22.3-6.8 Mg/Ml Soln 1 DROP EACH EYE BID for Glaucoma, BOTTLE 0 Refills Flaxseed (Linseed) (Flax Seeds) 1 Pow Pow 1 MG PO DIRECTED Fluocinolone Otic Drops (Dermotic Otic Drops) 0.01% Drops 1 DROP EACH EAR DAILY Lactobacillus Acidophilus (Probiotic) 1 Cap Cap 1 CAP PO TIDAC for Nutritional Supplement, #90 CAP 0 Refills Latanoprost Opth Drops (Latanoprost Opth Drops) 0.005% Drops 1 DROP EACH EYE HS for Glaucoma, #2.5 ML 0 Refills Refrigerate until opened. Losartan (Losartan) 25 Mg Tab 25 MG PO DAILY for Blood Pressure Management, #30 TAB 0 Refills Methenamine Hippurate (Methenamine Hippurate) 1 Gram Tab 1 GM PO BID for Infection, TAB 0 Refills Nitroglycerin SL (Nitrostat SL) 0.4 Mg Subl 0.4 MG SL DIRECTED PRN for CHEST PAIN, #100 TAB.SL 0 Refills 1 tablet under the tongue as needed for chest pain. Repeat every 5 minutes for a total of 3 DOSES or call 911 if NO relief. Ranitidine (Ranitidine) 150 Mg Tab 150 MG PO DAILY for Heartburn Management, #30 TAB 0 Refills Triamterene-Hydrochlorothiazide (Triamterene-Hydrochlorothiazide) 37.5-25 Mg Tab 1 TAB PO DAILY, #30 TAB 0 Refills Vitamins C & E (Cranberry Urinary Comfort) 1 Cap 1 CAP PO DAILY for Urinary Symptom Managemen, CAP 0 Refills Jenae Hernandez Jun 06, 2017 08:31 Marek Martin MD Jun 06, 2017 12:54
[2017-06-06] MEDS: ANASTROZOLE 1 MG TAB PO SCH (08:55)
[2017-06-06] MEDS: DORZOLAMIDE/TIMOLOL OPTH SOLN 10 ML BTL EACH EYE SCH (08:55)
[2017-06-06] MEDS: PANTOPRAZOLE SODIUM 40 MG VIAL IV PUSH SCH (08:55)
[2017-06-06] MEDS: LOSARTAN 25 MG TAB PO SCH (08:55)
[2017-06-06] MEDS: ATENOLOL 25 MG TAB PO SCH (08:55)
--- NOTE | 2017-06-06 10:04 | HHI.PR ---
Subjective Subjective Notes Tolerating fulls, feeling improved, continues to have BMs. Objective Vitals/I&O Vital Signs Date Time Temp Pulse Resp B/P (MAP) Pulse Ox O2 Delivery O2 Flow Rate FiO2 06/06/17 04:55 98.9 80 18 130/78 (95) 06/06/17 00:20 97 06/03/17 09:51 Room Air Radiology Last Impressions Chest X-Ray 06/03/17401 Signed Impressions: Service Date/Time: Saturday, June 03, 2017 04:22 - CONCLUSION: No acute abnormality demonstrated. Joe Sanders MD Abdomen X-Ray 06/03/17401 Signed Impressions: Service Date/Time: Saturday, June 03, 2017 04:24 - CONCLUSION: Benign- appearing abdomen. Previous cholecystectomy and bowel surgery. Joe Sanders MD Abdomen/Pelvis CT 06/03/17 0000 Signed Impressions: Service Date/Time: Saturday, June 03, 2017 05:32 - CONCLUSION: 1. Small bowel obstruction that appears to be intermediate grade and occurring within the anterior aspect of the pelvic cavity at the level of the proximal ileum. No perceptible mass. Patient has had previous midline laparotomy and obstruction is presumably related to an adhesion. 2. Previous ileocolic surgery with anastomosis, not appearing to be acutely contributory. Joe Sanders MD Narrative Exam NAD, awake and alert, sitting comfortably in chair Abd: mild distention, min ttp A/P Assessment and Plan 81 yo F with extensive prior surgical history, SBO Continuing to improve. Soft diet, and if tolerates clear for dc home. Recommend low fiber/low residue diet for at least a couple of weeks. Can f/u with me as outpatient or Dr. Jennings if desired. Herbie Nguyen MD Jun 06, 2017 10:04
[2017-06-06 11:46] LABS: AUTOMATED NEUTROPHIL # 6.7 TH/MM3 (1.8-7.7); BASOPHIL % 0.2 % (0.0-2.0); EOSINOPHIL # 0.2 TH/MM3 (0-0.4); EOSINOPHIL % 1.8 % (0.0-4.0); HEMATOCRIT 34.6 % (35.0-46.0); HEMOGLOBIN 11.8 GM/DL (11.6-15.3); LYMPH % 16.6 % (9.0-44.0); LYMPHOCYTE # 1.6 TH/MM3 (1.0-4.8); MEAN CELL VOLUME 87.7 FL (80.0-100.0); MEAN CORPUSCULAR HGB CONC 34.2 % (32.0-36.0); MEAN PLATELET VOLUME 7.7 FL (7.0-11.0); MONO % 11.1 % (0.0-8.0); MONOCYTE # 1.1 TH/MM3 (0-0.9); NEUT % 70.3 % (16.0-70.0); PLATELET COUNT 199 TH/MM3 (150-450); RED BLOOD COUNT 3.95 MIL/MM3 (4.00-5.30); RED CELL DISTRIBUTION WIDTH 13.4 % (11.6-17.2); WHITE BLOOD COUNT 9.6 TH/MM3 (4.0-11.0)
[2017-06-06 12:00] VITALS: BP 138/63; PULSE 60; RESP 18; TEMP 97.8; O2SAT 100
[2017-06-06] MEDS ORDERED: PANTOPRAZOLE SOD 40 MG DELAYED RELEASE TAB PO SCH (21:00)
== END 2017-06-06 15:16 | disposition home or self-care (01) | DRG 390 ==
LOC: NEPC 03:44 → NEDA 06:13 → N05B 10:37
PROVIDERS: ADMIT Hospitalist; ATTEND Hospitalist
DX: K56.50 Intestinal adhesions [bands], unspecified as to partial versus complete obstruction (principal); I10 Essential (primary) hypertension; E87.6 Hypokalemia; M89.9 Disorder of bone, unspecified; K21.9 Gastro-esophageal reflux disease without esophagitis; H40.9 Unspecified glaucoma; M19.90 Unspecified osteoarthritis, unspecified site; Z85.3 Personal history of malignant neoplasm of breast; Z88.1 Allergy status to other antibiotic agents; Z88.6 Allergy status to analgesic agent; Z90.12 Acquired absence of left breast and nipple; Z90.49 Acquired absence of other specified parts of digestive tract
CPT/HCPCS: 71046; 74018; 74019; 74176; 80048; 80053; 81001; 82550; 83605; 83690; 84484; 85014; 85018; 85025; 86850; 86900; 86901; 96374; 96375; C9113; J2270; J2405; J3480; J7042; Q9963